=== PATIENT | male | born 1950 | race Caucasian/White ===

== ENCOUNTER 2019-03-10 09:00 | Inpatient (IN) | payer MEDICARE ==
--- NOTE | 2019-03-10 09:38 | ER Document Report ---
ED Medical Screen (RME) - General Chief Complaint: Foot Pain Stated Complaint: LEFT FOOT PAIN Time Seen by Provider: 03/10/19 09:20 TRAVEL OUTSIDE OF THE [place] IN LAST 30 DAYS: No - HPI Notes: 03/10/19 09:36 Patient is a 68-year-old male with a history of hypertension and CVA who presents complaining of having issues with his left foot for over a year, but having decreased sensation over this time. No fever. No injury that he is aware of. I have treated and performed a rapid initial assessment of this patient. A comprehensive ED assessment and evaluation of the patient, analysis of test results and completion of medical decision making process will be conducted by additional ED providers. PHYSICAL EXAMINATION: GENERAL: Patient appears cachectic, no acute distress. A&Ox4. Answers question s appropriately. Lower extremities: No palpable pulses noted nor with hand-held Doppler at bedside. Foot is otherwise warm with less than 3-second capillary refill. - Related Data Allergies/Adverse Reactions: No Known Allergies Allergy (Verified 03/14/15 16:46) Past Medical History - Social History Frequency of alcohol use: Heavy Drug Abuse: None - Past Medical History Cardiac Medical History: Reports: Hx Hypercholesterolemia, Hx Hypertension Neurological Medical History: Reports: Hx Cerebrovascular Accident GI Medical History: Reports: Hx Gastroesophageal Reflux Disease - Immunizations Hx Diphtheria, Pertussis, Tetanus Vaccination: Yes Physical Exam - Vital signs Vitals: Temp Pulse Resp BP Pulse Ox 97.9 F 86 18 122/62 93 03/10/19 09:22 03/10/19 09:22 03/10/19 09:22 03/10/19 09:22 03/10/19 09:22 Course - Vital Signs Vital signs: Temp Pulse Resp BP Pulse Ox 97.9 F 86 18 122/62 93 03/10/19 09:22 03/10/19 09:22 03/10/19 09:22 03/10/19 09:22 03/10/19 09:22
[2019-03-10 10:39] LABS: PROTHROMBIN TIME 13.2 SEC (11.4-15.4)
[2019-03-10 10:40] LABS: PARTIAL THROMBOPLASTIN TIME 33.9 SEC (23.5-35.8)
[2019-03-10 10:42] LABS: ALBUMIN 3.5 g/dL (3.5-5.0); ALKALINE PHOSPHATASE 144 U/L (38-126); ANION GAP 10 (5-19); ASPARTATE AMINO TRANSFERASE 22 U/L (17-59); BILIRUBIN,DIRECT 0.2 mg/dL (0.0-0.4); BILIRUBIN,TOTAL 0.5 mg/dL (0.2-1.3); BLOOD UREA NITROGEN 6 mg/dL (7-20); CALCIUM 8.4 mg/dL (8.4-10.2); CARBON DIOXIDE 32 mmol/L (22-30); CHLORIDE 77 mmol/L (98-107); GLUCOSE 80 mg/dL (75-110); TOTAL PROTEIN 6.6 g/dL (6.3-8.2)
[2019-03-10] MEDS ORDERED: PANTOPRAZOLE SODIUM 40 MG VIAL IV ONE ×2 (11:29→13:39)
[2019-03-10] MEDS ORDERED: NORMAL SALINE 250 ML IV PRN (11:29)
--- NOTE | 2019-03-10 11:38 | ER Document Report ---
ED General - General Chief Complaint: Foot Pain Stated Complaint: LEFT FOOT PAIN Time Seen by Provider: 03/10/19 09:20 TRAVEL OUTSIDE OF THE [place] IN LAST 30 DAYS: No - HPI Notes: Patient is a 68-year-old male who presents the emergency department for evaluation. He is here because he has left foot pain. He states is been present for about 6 months to a year. He states it is numb and tingling occasio storm, but it also hurts. He really cannot tell me what makes it better or worse. He denies any lavonne injury to the area. On further questioning, the patient states he has been feeling weak for several months. He denies any melena hematochezia. No chest pain or shortness of breath. He states he is been taking his medications as prescribed. He states he had blood work done last about 6 months ago. He also admits to being admitted to [facility] at one point with GI bleeding. He states he had a colonoscopy. He is unsure as to what his diagnosis was at that time. He denies any history of hematemesis. No history of varices to his knowledge. - Related Data Allergies/Adverse Reactions: No Known Allergies Allergy (Verified 03/14/15 16:46) Home Medications: Cardizem, baby aspirin, unknown acid reflux medication Past Medical History - General Information source: Patient - Social History Smoking Status: Current Every Day Smoker Frequency of alcohol use: Heavy Drug Abuse: None Family History: Reviewed & Not Pertinent, Other Patient has suicidal ideation: No Patient has homicidal ideation: No - Past Medical History Cardiac Medical History: Reports: Hx Hypercholesterolemia, Hx Hypertension Neurological Medical History: Reports: Hx Cerebrovascular Accident GI Medical History: Reports: Hx Gastroesophageal Reflux Disease - Immunizations Hx Diphtheria, Pertussis, Tetanus Vaccination: Yes Review of Systems - Review of Systems Constitutional: See HPI EENT: No symptoms reported Cardiovascular: No symptoms reported Respiratory: No symptoms reported Gastrointestinal: See HPI Genitourinary: No symptoms reported Skin: No symptoms reported Neurological/Psychological: No symptoms reported Physical Exam - Vital signs Vitals: Temp Pulse Resp BP Pulse Ox 97.9 F 86 18 122/62 93 03/10/19 09:22 03/10/19 09:22 03/10/19 09:22 03/10/19 09:22 03/10/19 09:22 - Notes Notes: This is a 68-year-old male who appears older than his stated age in no acute distress. Vital signs reviewed, please refer to chart. Head is normocephalic, atraumatic. Pupils equal round, reactive to light. Conjunctive are pale. Neck is supple without meningismus. Heart is regular rate and rhythm. Lungs reveal mildly diminished breath sounds with occasional expiratory wheezes. Abdomen is soft, nontender, normoactive bowel sounds throughout. Rectal exam is performed. Good tone, good sensation. Stool is brown and heme positive. Extremities without cyanosis, clubbing. Posterior calves are nontender. Peripheral pulses are equal. Skin is warm and dry. Patient is awake, alert, neurological exam is nonfocal. Examination of the left lower extremity yields markedly diminished posterior tibial pulse. I am unable to palpated dorsalis pedis pulse. Foot is warm to palpation, capillary refill is 3 to 5 seconds. Sensation is intact. No significant tenderness. Course - Re-evaluation Re-evalutation: 03/10/19 11:38 Patient presents emergency department for evaluation. This is a longstanding alcoholic who presents to the emergency department for evaluation of foot pain. On arrival he is very pale. Laboratory investigations were obtained. He was found to have a sodium of 118 and a hemoglobin of 5. He is given blood. He is given Protonix. He is kept n.p.o. Urine sodium is ordered. My suspicion is that this is a chronic hyponatremia based on his beer intake. Patient is currently stable, hypertensive with heart rate in the 90s. I will contact medicine for admission. 03/10/19 12:[address] Montero regarding this admission. Because of the severity of this patient's hyponatremia, he may qualify for the need for hypertonic saline. He will contact the certified ophthalmic surgical assistant. Awaiting response. 03/10/19 13:04 Because of his multiple medical issues and other findings, Dr. Andino came to the department. He will admit the patient to the ICU for further care. - Vital Signs Vital signs: Temp Pulse Resp BP Pulse Ox 97.9 F 85 17 178/79 H 98 03/10/19 12:46 03/10/19 12:46 03/10/19 13:00 03/10/19 13:00 03/10/19 13:00 - Laboratory Result Diagrams: 03/10/19 11:12 03/10/19 09:46 Laboratory results interpreted by me: 03/10/19 03/10/19 03/10/19 09:46 11:12 11:14 RBC 1.74 L Hgb 5.3 L Hct 15.8 L RDW 20.3 H Seg Neuts % (Manual) 91 H Band Neutrophils % 1 L Lymphocytes % (Manual) 1 L Abs Lymphs (Manual) 0.1 L Sodium 118.5 L* Chloride 77 L Carbon Dioxide 32 H BUN 6 L Creatinine 0.50 L Alkaline Phosphatase 144 H Urine Urobilinogen Crossmatch See Detail 03/10/19 11:36 RBC Hgb Hct RDW Seg Neuts % (Manual) Band Neutrophils % Lymphocytes % (Manual) Abs Lymphs (Manual) Sodium Chloride Carbon Dioxide BUN Creatinine Alkaline Phosphatase Urine Urobilinogen 2.0 H Crossmatch - Diagnostic Test Radiology reviewed: Pending - Verbal report reveals monophasic flow Discharge - Discharge Clinical Impression: Hyponatremia, Peripheral arterial disease Anemia Qualifiers: Iron deficiency anemia type: chronic blood loss GI bleed Qualifiers: GI bleed type/associated pathology: unspecified gastrointestinal hemorrhage type Qualified Code(s): K92.2 - Gastrointestinal hemorrhage, unspecified Condition: Stable Disposition: ADMITTED INPATIENT Admitting Provider: Tejal ([employer]) Unit Admitted: ICU
[2019-03-10 11:51] LABS: HEMATOCRIT 15.8 % (37.9-51.0); HEMOGLOBIN 5.3 g/dL (13.5-17.0); RED BLOOD COUNT 1.74 10^6/uL (4.35-5.55); WHITE BLOOD COUNT 6.4 10^3/uL (4.0-10.5)
[2019-03-10 11:52] LABS: MEAN CORPUSCULAR HEMOGLOBIN 30.2 pg (27.0-33.4); MEAN CORPUSCULAR HGB CONC 33.2 g/dL (32.0-36.0); MEAN CORPUSCULAR VOLUME 91 fl (80-97); PLATELET COUNT 281 10^3/uL (150-450); RED CELL DISTRIBUTION WIDTH 20.3 % (11.5-14.0)
[2019-03-10 11:57] LABS: ABSOLUTE LYMPHOCYTES# (MANUAL) 0.1 10^3/uL (0.5-4.7); ABSOLUTE MONOCYTES # (MANUAL) 0.4 10^3/uL (0.1-1.4); ANISOCYTOSIS 2+; BAND NEUTROPHILS % (MANUAL) 1 % (3-5); BASOPHILS % (MANUAL) 0 % (0-2); EOSINOPHILS % (MANUAL) 0 % (0-6); LYMPHOCYTES % (MANUAL) 1 % (13-45); MONOCYTES % (MANUAL) 7 % (3-13); POLYCHROMASIA SLIGHT; SCHISTOCYTES SLIGHT; SEGMENTED NEUTROPHILS % (MAN) 91 % (42-78); TEAR DROP CELLS SLIGHT; TOTAL CELLS COUNTED 100; TOXIC GRANULATION SLIGHT
[2019-03-10 11:58] LABS: BURR CELLS SLIGHT; HYPOCHROMASIA SLIGHT; PLATELET COMMENT ADEQUATE; POIKILOCYTOSIS SLIGHT
--- NOTE | 2019-03-10 12:06 | XCELERA REPORT ---
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 Reason For Study: L>R foot pain, no palp pulses, still warm Ordering Physician: PAWAN STEPHENS Performed By: Khushboo Roca Measurements and Calculations Right Left ART MUSEUM AIDE PSV -240.9 225.9 cm/sec Prox PFA PSV 448.0 -522.5cm/sec Prox SFA PSV 119.9 95.0 cm/sec Mid SFA PSV 98.5 26.7 cm/sec Dist SFA PSV 53.3 40.6 cm/sec Dist Pop A PSV 27.3 82.4 cm/sec Prox JOSUE PSV 56.7 22.7 cm/sec Dist JOSUE PSV 39.6 22.9 cm/sec Prox EXTRACTION MACHINE OPERATOR PSV 15.2 55.8 cm/sec Dist EXTRACTION MACHINE OPERATOR PSV 10.8 11.3 cm/sec Prox Topher A 56.3 35.1 cm/sec PSV Dist Topher A 55.8 15.0 cm/sec PSV Mario Alberto Pedis PSV 25.3 11.2 cm/sec Right Side Arterial Evaluation High velocity and triphasic waveforms, severe wall calcification and plaque on hayward scale noted in the Common Femoral and Deep Femoral arteries Normal velocity and triphasic waveforms noted from the Femoral artery to the Popliteal. Monophasic with low normal velocity in the Peroneal and Anterior tibial arteries. Monophasic with low velocity, spectral broadening in the Posterior tibial artery. Ankle Brachial index not done. Left Side Arterial Evaluation High velocity and biphasic waveforms, severe wall calcification and plaque on hayward scale noted in the Common Femoral and Deep Femoral arteries Low normal velocity and monophasic waveforms , spectral broadening noted from the Femoral artery to the infrageniculate arteries. Ankle Brachial index not done. Critical Findings Discussed with Pawan Stephens. Interpretation Summary Severe hemodynamically significant lesions in the bilateral lower extremities, on duplex imaging, at rest. Duplex imaging shows extensive arterial wall calcification, especially in the larger vessels. On the right there is high grade stenosis in the ART MUSEUM AIDE, DFA. Sequential disease in the infrageniculate vessels. On the left there is high grade stenosis in the ART MUSEUM AIDE, DFA. Sequential disease in the Femoral artery.. Both severe, but worse on the left. : PAWAN STEPHENS > Maximino Toney
[2019-03-10 12:15] LABS: APPEARANCE,URINE CLEAR; BILIRUBIN,URINE NEGATIVE (NEGATIVE); COLOR,URINE YELLOW; GLUCOSE, URINE NEGATIVE (NEGATIVE); KETONES,URINE NEGATIVE (NEGATIVE); LEUKOCYTE ESTERASE,URINE NEGATIVE (NEGATIVE); NITRITE,URINE NEGATIVE (NEGATIVE); PROTEIN,URINE NEGATIVE (NEGATIVE); URINE SPECIFIC GRAVITY 1.005
[2019-03-10] MEDS ORDERED: FENTANYL CITRATE INJ/PF 100 MCG/2 ML AMPUL IV ONE ×2 (13:53→19:18)
[2019-03-10 13:55] LABS: CREATINE KINASE 41 U/L (55-170); PHOSPHORUS 3.6 mg/dL (2.5-4.5)
[2019-03-10] MEDS ORDERED: FOLIC ACID INJ 5 MG/1 ML 10 ML VIAL IV SCH (14:00)
--- NOTE | 2019-03-10 14:05 | RADIOLOGY REPORT (SQ) ---
EXAM DESCRIPTION: CHEST SINGLE VIEW COMPLETED DATE/TIME: 03/10/2019 1:43 pm REASON FOR STUDY: smoker with anemia COMPARISON: AP view of the chest from 03/14/2015. EXAM PARAMETERS: NUMBER OF VIEWS: One view. TECHNIQUE: An AP view of the chest was obtained. RADIATION DOSE: NA LIMITATIONS: None. FINDINGS: LUNGS AND PLEURA: Patchy asymmetric opacities in the right base. There is no sizable pleu ral effusion or pneumothorax. MEDIASTINUM AND HILAR STRUCTURES: No mediastinal or hilar contour abnormality. HEART AND VASCULAR STRUCTURES: Stable cardiac silhouette. BONES: Chronic fracture deformities of several left-sided ribs. HARDWARE: None in the chest. OTHER: No other finding. IMPRESSION: Patchy asymmetric opacities in the right base. Correlate with clinical findings to excl ude a pneumonia. TECHNICAL DOCUMENTATION: JOB ID: [id number] All Rights Reserved Reading location - IP/workstation name: [email or web address]
[2019-03-10 14:19] LABS: ALCOHOL < 10 mg/dL (NONE DETECTED)
[2019-03-10 14:32] LABS: INTERNATIONAL RATION (INR) 1.02; PROTHROMBIN TIME 13.4 SEC (11.4-15.4)
[2019-03-10 14:33] LABS: PARTIAL THROMBOPLASTIN TIME 34.5 SEC (23.5-35.8)
[2019-03-10 14:44] LABS: ARTERIAL BLOOD BASE EXCESS 7.6 mmol/L; ARTERIAL BLOOD HCO3 33.1 mmol/L (20-24); ARTERIAL BLOOD O2 SATURATION 97.1 % (94-98); ARTERIAL BLOOD PCO2 53.3 mmHg (35-45); ARTERIAL BLOOD PH 7.41 (7.35-7.45); ARTERIAL BLOOD PO2 93.6 mmHg (80-100); ARTERIAL BLOOD TOTAL CO2 34.7 mmol/L (23-27)
[2019-03-10 14:45] LABS: ARTERIAL BLOOD FIO2 2LPM
[2019-03-10 14:51] LABS: URINE AMPHETAMINES SCREEN NEGATIVE; URINE BARBITURATES SCREEN NEGATIVE; URINE BENZODIAZEPINES SCREEN NEGATIVE; URINE COCAINE SCREEN NEGATIVE; URINE MARIJUANA (THC) SCREEN NEGATIVE; URINE METHADONE SCREEN NEGATIVE; URINE PHENCYCLIDINE SCREEN NEGATIVE
[2019-03-10 14:58] LABS: CARCINOEMBRYONIC ANTIGEN 4.4 ng/mL (<3.0)
[2019-03-10] MEDS: NORMAL SALINE 100 ML with PANTOPRAZOLE SODIUM 80 MG IV PRN ×2 (15:22)
[2019-03-10] MEDS: NORMAL SALINE 1000 ML 1,000 ML IV PRN (15:22)
[2019-03-10] MEDS: THIAMINE HCL 500 MG in NORMAL SALINE 250 ML IV SCH (15:38)
--- NOTE | 2019-03-10 16:32 | RADIOLOGY REPORT (SQ) ---
EXAM DESCRIPTION: CT CHEST WITH; CTA ABD AORTA AND EXTREMITY COMPLETED DATE/TIME: 03/10/2019 1:59 pm REASON FOR STUDY: hyponatremia terminal operator smoker; ischemic left leg hyponatremia terminal operator smoker; ischemic left leg left leg ischemia. COMPARISON: None. TECHNIQUE: CT scan of the chest, abdomen and pelvis and lower extremities performed with and without intravenous contrast using helical scanning technique with dynamic intravenous contrast injection. I mages reviewed with lung, soft tissue, and bone windows. Reconstructed coronal and sagittal MPR image s reviewed. All images stored on PACS. Advanced 3D imaging as volume-rendering, MIPs, SSD performed? NO All CT scanners at this facility use dose modulation, iterative reconstruction, and/or weight based d osing when appropriate to reduce radiation dose to as low as reasonably achievable (ALARA). [facility]: Dose Right [facility]: CareDose [facility]: Dose Right [facility]: Teradose 4D [facility]: HashCube CONTRAST TYPE AND DOSE: 100 mL Omnipaque 350 RENAL FUNCTION: Not given. LIMITATIONS: None. FINDINGS: NON-CONTRASTED IMAGING: There is extensive calcified atherosclerotic plaque involving the aorta, mesenteric vessels, bilateral lower extremities. POST-CONTRAST IMAGING: AORTA AND VESSELS: No aneurysm. No dissection. Coarse atherosclerotic calcification at the origins o f the renal arteries bilaterally, with probable greater than 50% stenosis on the left. Accessory rig ht renal artery is noted. There is coarse atherosclerotic calcification at the origin of the celiac artery. Replaced hepatic arteries from the superior mesenteric artery. There is moderate coarse ath erosclerotic plaque at the origin of the superior mesenteric artery. The inferior mesenteric artery is patent. There is coarse and circumferential atherosclerotic plaque the bifurcation of the common iliac arteries. There is greater than 50% stenosis at the proximal left common iliac artery. No ane urysm. Normal opacification of the bilateral external iliac arteries with scattered calcified and no ncalcified atherosclerotic plaque. No dissection. There is normal opacification of the right university internship al iliac artery. There is no detectable opacification of the left internal iliac artery. LUNGS: The trachea has normal caliber and appearance. Background moderate pulmonary emphysema. Tree -in-bud type nodularity in the right upper lobe suggestive of respiratory bronchiolitis/small airways disease. Focal atelectasis or possible nodule at the right lung base measures 2 cm. No pleural eff usion or pneumothorax. MEDIASTINUM: No mediastinal adenopathy. Esophagus is unremarkable. No thyroid nodules. AXILLA: No axillary adenopathy. BONES OF THE CHEST: Spondylosis and degenerative disc disease in the thoracic spine. Multiple chron ic bilateral posterior and lateral rib fractures. No definite acute fractures. LIVER: Normal size. No masses or dilated ducts. SPLEEN: Normal size. No focal lesions. PANCREAS: No masses. No significant calcifications. No adjacent inflammation or peripancreatic fluid collections. Pancreatic duct not dilated. GALLBLADDER: No identified stones by CT criteria. No inflammatory changes to suggest cholecystitis. ADRENAL GLANDS: No significant masses or asymmetry. RIGHT KIDNEY AND URETER: No mass, calculi or urinary tract obstruction. LEFT KIDNEY AND URETER: No mass, calculi or urinary tract obstruction. RETROPERITONEUM: No retroperitoneal adenopathy, hemorrhage or masses. BOWEL AND PERITONEAL CAVITY: Colonic diverticulosis without evidence of diverticulitis. There is no bowel obstruction. No bowel wall thickening or inflammatory change. APPENDIX: Normal. ABDOMINAL WALL: No masses. No hernias. BONY STRUCTURES: There are technically age indeterminate, probably chronic, moderate compression frac tures at T12 and L1 and a severe probably chronic L3 compression fracture. No lytic or blastic bone lesions. 3-D IMAGING: Confirms the above findings. OTHER: No other significant finding. LOWER EXTREMITIES: RIGHT LEG: FEMORAL ARTERIES: The right common femoral artery is patent. Calcified and noncalcified atherosclero tic plaque at the bifurcation of the profunda and superficial femoral arteries. Both femoral arterie s are opacified with contrast. There is calcified and noncalcified atherosclerotic plaque in the sup erficial femoral artery at the adductor hiatus with probable 50% stenosis at this level. POPLITEAL ARTERY: Focal stenosis at the proximal right popliteal artery probably 70%. Calcified and noncalcified atherosclerotic plaque in the popliteal artery. There is a coarse calcification of the distal popliteal artery with high-grade stenosis just prior to the trifurcation. TIBIOPERONEAL TRUNK AND RUNOFF VESSELS: Extensive calcified atherosclerotic plaque in the vessels bel ow the knee. There does appear to be 3 vessel runoff below the knee to the level of the ankle. Eval uation of the foot is limited. OTHER: No other significant finding. LEFT LEG: FEMORAL ARTERIES: The left common femoral artery is patent with calcified and noncalcified atheroscle rotic plaque. At the bifurcation of the left profunda femoral and superficial femoral artery, there is extensive calcified and noncalcified atherosclerotic plaque with near complete occlusion of the etienne perficial femoral artery and probable complete focal occlusion of the profunda femoral artery. There is reconstitution of vascular flow within profunda femoral artery from collateral vessels. The supe rficial femoral artery demonstrates small caliber with calcified and noncalcified atherosclerotic jon que. There is opacification throughout to the level of the popliteal artery. POPLITEAL ARTERY: Course atherosclerotic calcification in the popliteal artery with significant steno sis in the proximal and mid popliteal artery. TIBIOPERONEAL TRUNK AND RUNOFF VESSELS: There is three-vessel runoff at the trifurcation with occlusi on at the mid calf of the peroneal artery two-vessel runoff from the mid calf, with opacification of the anterior and posterior tibial arteries. Evaluation of the vasculature at the foot is limited. OTHER: No other significant finding. IMPRESSION: 1. Extensive atherosclerosis in the abdominal aorta and lower extremities as described. Of note, the re is probably greater than 50% stenosis in the left common femoral artery just prior to the internal and external bifurcation, complete occlusion of the left internal iliac and profunda femoral arterie s. Extensive atherosclerotic plaque with stenoses as described in the bilateral lower extremities. Recommend surgical/interventional consultation. 2. Tree-in-bud type nodularity in the right upper lobe suggestive of respiratory bronchiolitis/small airways disease. 3. Rounded atelectasis or possible nodule at the right lung base. A follow-up CT of the chest in 3 [facility] is recommended to re-evaluate these findings. 4. Multiple technically age indeterminate but probably chronic thoracic and lumbar spine compression fractures. Chronic bilateral rib fractures. TECHNICAL DOCUMENTATION: JOB ID: [id number] Quality ID # [id number]: Final reports with documentation of one or more dose reduction techniques (e.g., Au tomated exposure control, adjustment of the mA and/or kV according to patient size, use of iterative reconstruction technique) 2010 [employer]- All Rights Reserved Reading location - IP/workstation name: [email or web address]
--- NOTE | 2019-03-10 16:32 | RADIOLOGY REPORT (SQ) ---
EXAM DESCRIPTION: CT CHEST WITH; CTA ABD AORTA AND EXTREMITY COMPLETED DATE/TIME: 03/10/2019 1:59 pm REASON FOR STUDY: hyponatremia intermediate manager smoker; ischemic left leg hyponatremia intermediate manager smoker; ischemic left leg left leg ischemia. COMPARISON: None. TECHNIQUE: CT scan of the chest, abdomen and pelvis and lower extremities performed with and without intravenous contrast using helical scanning technique with dynamic intravenous contrast injection. I mages reviewed with lung, soft tissue, and bone windows. Reconstructed coronal and sagittal MPR image s reviewed. All images stored on PACS. Advanced 3D imaging as volume-rendering, MIPs, SSD performed? NO All CT scanners at this facility use dose modulation, iterative reconstruction, and/or weight based d osing when appropriate to reduce radiation dose to as low as reasonably achievable (ALARA). [facility]: Dose Right [facility]: CareDose [facility]: Dose Right [facility]: Teradose 4D [facility]: ChowNow CONTRAST TYPE AND DOSE: 100 mL Omnipaque 350 RENAL FUNCTION: Not given. LIMITATIONS: None. FINDINGS: NON-CONTRASTED IMAGING: There is extensive calcified atherosclerotic plaque involving the aorta, mesenteric vessels, bilateral lower extremities. POST-CONTRAST IMAGING: AORTA AND VESSELS: No aneurysm. No dissection. Coarse atherosclerotic calcification at the origins o f the renal arteries bilaterally, with probable greater than 50% stenosis on the left. Accessory rig ht renal artery is noted. There is coarse atherosclerotic calcification at the origin of the celiac artery. Replaced hepatic arteries from the superior mesenteric artery. There is moderate coarse ath erosclerotic plaque at the origin of the superior mesenteric artery. The inferior mesenteric artery is patent. There is coarse and circumferential atherosclerotic plaque the bifurcation of the common iliac arteries. There is greater than 50% stenosis at the proximal left common iliac artery. No ane urysm. Normal opacification of the bilateral external iliac arteries with scattered calcified and no ncalcified atherosclerotic plaque. No dissection. There is normal opacification of the right industrial engineering intern al iliac artery. There is no detectable opacification of the left internal iliac artery. LUNGS: The trachea has normal caliber and appearance. Background moderate pulmonary emphysema. Tree -in-bud type nodularity in the right upper lobe suggestive of respiratory bronchiolitis/small airways disease. Focal atelectasis or possible nodule at the right lung base measures 2 cm. No pleural eff usion or pneumothorax. MEDIASTINUM: No mediastinal adenopathy. Esophagus is unremarkable. No thyroid nodules. AXILLA: No axillary adenopathy. BONES OF THE CHEST: Spondylosis and degenerative disc disease in the thoracic spine. Multiple chron ic bilateral posterior and lateral rib fractures. No definite acute fractures. LIVER: Normal size. No masses or dilated ducts. SPLEEN: Normal size. No focal lesions. PANCREAS: No masses. No significant calcifications. No adjacent inflammation or peripancreatic fluid collections. Pancreatic duct not dilated. GALLBLADDER: No identified stones by CT criteria. No inflammatory changes to suggest cholecystitis. ADRENAL GLANDS: No significant masses or asymmetry. RIGHT KIDNEY AND URETER: No mass, calculi or urinary tract obstruction. LEFT KIDNEY AND URETER: No mass, calculi or urinary tract obstruction. RETROPERITONEUM: No retroperitoneal adenopathy, hemorrhage or masses. BOWEL AND PERITONEAL CAVITY: Colonic diverticulosis without evidence of diverticulitis. There is no bowel obstruction. No bowel wall thickening or inflammatory change. APPENDIX: Normal. ABDOMINAL WALL: No masses. No hernias. BONY STRUCTURES: There are technically age indeterminate, probably chronic, moderate compression frac tures at T12 and L1 and a severe probably chronic L3 compression fracture. No lytic or blastic bone lesions. 3-D IMAGING: Confirms the above findings. OTHER: No other significant finding. LOWER EXTREMITIES: RIGHT LEG: FEMORAL ARTERIES: The right common femoral artery is patent. Calcified and noncalcified atherosclero tic plaque at the bifurcation of the profunda and superficial femoral arteries. Both femoral arterie s are opacified with contrast. There is calcified and noncalcified atherosclerotic plaque in the sup erficial femoral artery at the adductor hiatus with probable 50% stenosis at this level. POPLITEAL ARTERY: Focal stenosis at the proximal right popliteal artery probably 70%. Calcified and noncalcified atherosclerotic plaque in the popliteal artery. There is a coarse calcification of the distal popliteal artery with high-grade stenosis just prior to the trifurcation. TIBIOPERONEAL TRUNK AND RUNOFF VESSELS: Extensive calcified atherosclerotic plaque in the vessels bel ow the knee. There does appear to be 3 vessel runoff below the knee to the level of the ankle. Eval uation of the foot is limited. OTHER: No other significant finding. LEFT LEG: FEMORAL ARTERIES: The left common femoral artery is patent with calcified and noncalcified atheroscle rotic plaque. At the bifurcation of the left profunda femoral and superficial femoral artery, there is extensive calcified and noncalcified atherosclerotic plaque with near complete occlusion of the etienne perficial femoral artery and probable complete focal occlusion of the profunda femoral artery. There is reconstitution of vascular flow within profunda femoral artery from collateral vessels. The supe rficial femoral artery demonstrates small caliber with calcified and noncalcified atherosclerotic jon que. There is opacification throughout to the level of the popliteal artery. POPLITEAL ARTERY: Course atherosclerotic calcification in the popliteal artery with significant steno sis in the proximal and mid popliteal artery. TIBIOPERONEAL TRUNK AND RUNOFF VESSELS: There is three-vessel runoff at the trifurcation with occlusi on at the mid calf of the peroneal artery two-vessel runoff from the mid calf, with opacification of the anterior and posterior tibial arteries. Evaluation of the vasculature at the foot is limited. OTHER: No other significant finding. IMPRESSION: 1. Extensive atherosclerosis in the abdominal aorta and lower extremities as described. Of note, the re is probably greater than 50% stenosis in the left common femoral artery just prior to the internal and external bifurcation, complete occlusion of the left internal iliac and profunda femoral arterie s. Extensive atherosclerotic plaque with stenoses as described in the bilateral lower extremities. Recommend surgical/interventional consultation. 2. Tree-in-bud type nodularity in the right upper lobe suggestive of respiratory bronchiolitis/small airways disease. 3. Rounded atelectasis or possible nodule at the right lung base. A follow-up CT of the chest in 3 [facility] is recommended to re-evaluate these findings. 4. Multiple technically age indeterminate but probably chronic thoracic and lumbar spine compression fractures. Chronic bilateral rib fractures. TECHNICAL DOCUMENTATION: JOB ID: [id number] Quality ID # [id number]: Final reports with documentation of one or more dose reduction techniques (e.g., Au tomated exposure control, adjustment of the mA and/or kV according to patient size, use of iterative reconstruction technique) 2010 [employer]- All Rights Reserved Reading location - IP/workstation name: [email or web address]
--- NOTE | 2019-03-10 17:32 | CRITICAL CARE ADMISSION REPORT ---
HPI Date:: 03/10/19 Time:: 13:40 Reason for ICU Reason:: Hyponatremia and Anemia HPI: Zachery Sharma is a 68-year-old man who presented to the emergency department for evaluation. He called EMS himself because of pain in his left foot. The on going work-up he was ultimately found to be severely anemic and hyponatremic but asymptomatic in both respects. We were called by the hospitalist service to evaluate for official consult to determine whether he needed ICU management and care. He relates that pain has been present for 6 months or more. When asked why he presented today he states that he became tired of it. He paresthesia and anesthesia intermittently but has frequent pain. Unsure of claudication endorsement. He imbibes at least a 12 pack of beer per day and has been smoking 1-1/2 to 2 Packs of cigarettes daily. Denies trauma. Has been malaised and feels weaker for some time. No chest pain, no shortness of breath. He does not complain of any hemoptysis, hematemesis, hematochezia, or melena. There is some suggestion that he had a GI bleed at [facility]. He also states that his family doctor is a Dr. Pinto however after multiple attempts I am unable to find Dr. Pinto associated with this patient. He says his last appointment was a month ago. Despite that although he has listed medications he is unsure of the names and does not endorse that he takes Plavix even though that it is listed. The only doctor listed with 1 of his medications is that Dr. Ronnie Garcia who is an ED doc. He states he is been taking his medications as prescribed. He states he had blood work done last about 6 months ago. He appears to have had a colonoscopy at some point. No history of varices to his knowledge. He was ordered 2 units of blood. He was not hemodynamically unstable. Notably his sodium was 118. Patient is extremely emaciated and he states he has been losing significant weight. He had duplex ultrasound of his extremity showing poor flow History obtained from:: Patient and ED staff - Diagnosis/Plan (1) Hyponatremia Is this a current diagnosis for this admission?: Yes (2) Anemia Qualifiers: Anemia type: iron deficiency Iron deficiency anemia type: chronic blood loss Qualified Code(s): D50.0 - Iron deficiency anemia secondary to blood loss (chronic) Is this a current diagnosis for this admission?: Yes (3) Weight loss, abnormal Is this a current diagnosis for this admission?: Yes (4) Moderate protein-calorie malnutrition Is this a current diagnosis for this admission?: Yes (5) ETOH abuse Is this a current diagnosis for this admission?: Yes (6) EtOH dependence Qualifiers: Substance use status: unspecified alcohol-induced disorder Qualified Code(s): F10.29 - Alcohol dependence with unspecified alcohol-induced disorder Is this a current diagnosis for this admission?: Yes (7) Continuous tobacco abuse Is this a current diagnosis for this admission?: Yes (8) Peripheral vascular complications Is this a current diagnosis for this admission?: Yes (9) Hypertension Qualifiers: Hypertension type: essential hypertension Qualified Code(s): I10 - Essential (primary) hypertension Is this a current diagnosis for this admission?: Yes (10) Failure to thrive syndrome, adult Is this a current diagnosis for this admission?: Yes - . Plan Summary: Patient has symptomatic for vascular disease and I am concerned about the left foot pain. This may be exacerbated because of the anemia which appears to be an indolent insidious loss perceptively most likely GI bleed. He is extremely emaciated hyponatremic and has a long and outstanding alcohol history as well as tobacco abuse. 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 The last known sodium was 2016 and the number was 136. Today is 118 is associated with any acute neurological dysfunction. His last drink of alcohol was last evening. His foot pain is worse and I ordered a CT angiogram with extremity runoff. If this is significant he would need to be transferred to a higher level of care given our lack of vascular surgery services. For now I suspect his hyponatremia is longstanding and chronic and he will not need aggressive care such as 3% saline unless he has neurological changes. That being said given his lack of alcohol for 24 hours he is at risk for alcohol withdrawal seizures and a lower sodium may place him at a higher risk for a low threshold for seizures. For that reason he needs to be monitored in an ICU. His foot pain is significant and we have given him fentanyl. He is hypertensive now because of pain and for baseline hypertension. He certainly does not show any degree of hypotension suggesting that his anemia has been longstanding and chronic. Our hope is to improve his leg pain with a transfusion of at least [address] of chest to rule out malignancy as well. Awaiting urine studies to determine the type of hyponatremia has as well as serum osmolarity's. Given his alcohol use I have added high-dose thiamine and folate. We will place him under seizure precautions. He will be maintained in the emergency room until the CT is completed. CT angiogram of abdomen with extremity runoff extensive disease. Specifically there is thrombosis of the internal iliac and profundus with collateral to the profundus. His pain has been significant requiring fentanyl. Examination of the foot shows hyperemia and pain with movement or palpation. There is no evidence to support cellulitis. The atherosclerotic changes are significant to warrant vascular consult. I had the opportunity to speak with Dr. Yee advised him to review the images and the case with me. He does have chronic disease with collateral flow and the anemia has probably made the ischemia slightly worse. With blood products that he is received his foot is hyperemic and his pain is improved with both the fentanyl and the blood products. At this point he recommends continued transfusion and obviously termination of source. 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 He has a questionable nodule on the lung on the right which will need follow-up. Admit the patient to the ICU and follow his course Past Medical History Cardiac Medical History: Reports: Hyperlipidema, Hypertension Malignancy Medical History: Reports: None GI Medical History: Reports: Gastroesophageal Reflux Disease, Other - Questionable GI bleed in past Psychiatric Medical History: Reports: Alcohol Dependency, Tobacco Dependency Social/Family History - Social History Lives with: Alone Smoking Status: Current Every Day Smoker Frequency of Alcohol Use: Heavy Amount of Alcoholic Beverages Per Day: 12 pack Last Alcohol Use: 03/09/19 Hx Recreational Drug Use: No Drugs: None - Family History Family History: Reviewed & Not Pertinent - Medication/Allergies Home Medications: Clopidogrel Bisulfate [Plavix 75 mg Tablet] 75 mg PO DAILY 08/19/13 Diltiazem HCl [Diltiazem ER] 360 mg PO DAILY 08/19/13 Famotidine [Pepcid 20 mg Tablet] 20 mg PO BID 08/19/13 Ferrous Sulfate [Albafort] 325 mg PO DAILY 08/19/13 Metronidazole [Metrogel] 60 gm TP ASDIR 08/19/13 Pravastatin Sodium [Pravachol] 40 mg PO QHS 08/19/13 Diltiazem HCl [Diltiazem ER] 360 mg PO DAILY #14 capsule.er 03/15/15 Allergies/Adverse Reactions: No Known Allergies Allergy (Verified 03/14/15 16:46) Review of Systems Constitutional: PRESENT: fatigue, weakness, weight loss. ABSENT: headache(s) Cardiovascular: ABSENT: chest pain, dyspnea on exertion Respiratory: ABSENT: cough, dyspnea, hemoptysis Gastrointestinal: ABSENT: abdominal pain, coffee ground emesis, constipation, diarrhea, hematemesis, hematochezia, nausea, vomiting Genitourinary: ABSENT: difficulty urinating, hematuria Musculoskeletal: PRESENT: other - Left foot pain Neurological: PRESENT: numbness, paresthesias, weakness - left leg Hematologic/Lymphatic: ABSENT: easy bleeding, easy bruising Physical Exam Vital Signs: Temp Pulse Resp BP Pulse Ox 97.7 F 81 11 L 186/86 H 100 03/10/19 13:03 03/10/19 13:03 03/10/19 13:30 03/10/19 13:30 03/10/19 13:30 Intake & Output 03/09/19 03/10/19 03/11/19 06:59 06:59 06:59 Intake Total 0 Balance 0 Weight 46.4 kg Weight/Height Weight 46.4 kg Height 5 ft 6 in General appearance: PRESENT: no acute distress, cooperative, disheveled, thin Exam: Thin, emaciated 68-year-old white male in occasional moderate distress from left foot pain. He is awake and aware oriented to person time and place. He appears chronically ill, nontoxic but ill-appearing now Head exam: PRESENT: atraumatic, normocephalic Eye exam: PRESENT: conjunctiva pink, EOMI, PERRLA. ABSENT: nystagmus, scleral icterus Ear exam: PRESENT: normal external ear exam Mouth exam: PRESENT: dry mucosa, neck supple Teeth exam: PRESENT: edentulous Neck exam: ABSENT: carotid bruit, JVD, lymphadenopathy, thyromegaly, tracheal deviation Respiratory exam: PRESENT: clear to auscultation ran, unlabored. ABSENT: accessory muscle use, rales, rhonchi, tachypnea, wheezes Cardiovascular exam: PRESENT: RRR. ABSENT: diastolic murmur, rubs, systolic murmur Pulses: PRESENT: other - No palpable left DP pulse. Increased MOTOCROSS RACER (Capillary refill time) > 3 seconds. ABSENT: normal dorsalis pedis pul GI/Abdominal exam: PRESENT: normal bowel sounds, soft, other - Significant we ight loss with scaphoid abdomen. ABSENT: distended, guarding, mass, organolmegaly, rebound, tenderness Rectal exam: PRESENT: heme (+) stool Extremities exam: ABSENT: pedal edema, tenderness Musculoskeletal exam: ABSENT: deformity, dislocation, normal inspection - atrophy of left leg Neurological exam: PRESENT: alert, awake, oriented to person, oriented to place, oriented to time, oriented to situation, CN II-XII grossly intact. ABSENT: motor sensory deficit Psychiatric exam: PRESENT: appropriate affect, normal mood Focused psych exam: ABSENT: pressured speech, psychomotor agitation, restlessness Skin exam: PRESENT: intact, pallor - left foot, slight. ABSENT: abrasion, cyanosis, erythema Laboratory/Radiographs Laboratory Results: 03/10/19 11:12 03/10/19 09:46 03/10/19 03/10/19 03/10/19 09:46 09:46 11:12 WBC Cancelled 6.4 RBC Cancelled 1.74 L Hgb Cancelled 5.3 L Hct Cancelled 15.8 L MCV Cancelled 91 MCH Cancelled 30.2 MCHC Cancelled 33.2 RDW Cancelled 20.3 H Plt Count Cancelled 281 Seg Neutrophils % Cancelled Not Reportable Sodium 118.5 L* Potassium 4.0 Chloride 77 L Carbon Dioxide 32 H Anion Gap 10 BUN 6 L Creatinine 0.50 L Est GFR ( Amer) > 60 Glucose 80 Calcium 8.4 Total Bilirubin 0.5 AST 22 Alkaline Phosphatase 144 H Total Protein 6.6 Albumin 3.5 Urine Color Urine Appearance Urine pH Ur Specific [place] Urine Protein Urine Glucose (UA) Urine Ketones Urine Blood Urine Nitrite Ur Leukocyte Esterase Urine WBC (Auto) Blood Type Antibody Screen 03/10/19 03/10/19 11:14 11:36 WBC RBC Hgb Hct MCV MCH MCHC RDW Plt Count Seg Neutrophils % Sodium Potassium Chloride Carbon Dioxide Anion Gap BUN Creatinine Est GFR ( Amer) Glucose Calcium Total Bilirubin AST Alkaline Phosphatase Total Protein Albumin Urine Color YELLOW Urine Appearance CLEAR Urine pH 7.0 Ur Specific [place] 1.005 Urine Protein NEGATIVE Urine Glucose (UA) NEGATIVE Urine Ketones NEGATIVE Urine Blood NEGATIVE Urine Nitrite NEGATIVE Ur Leukocyte Esterase NEGATIVE Urine WBC (Auto) 0 Blood Type O POSITIVE Antibody Screen NEGATIVE Chest X-Ray 03/10/19 13:06 IMPRESSION: Patchy asymmetric opacities in the right base. Correlate with clinical findings to exclude a pneumonia. US reviewed Impressions: Severe arterial disease bilaterally but worse on left All labs, radiographs, diagnostic studies and EKGs were personally reviewed: Yes In addition, reports of radiographic and diagnostic studies were read: Yes Critical Time Critical Time (minutes): 120 -: The care of a critically ill patient is dynamic. This note represents a static moment in the admission process. Orders and treatments may be given simultaneously and urgently, and time is not desk representative of the treatment process. This patient requires Critical Care secondary to life threatening organ or limb dysfunction. Without Critical Care services, the patient is at risk for increa sed mortality and morbidity.
[2019-03-10 18:45] LABS: MEAN CORPUSCULAR HEMOGLOBIN 28.7 pg (27.0-33.4); MEAN CORPUSCULAR HGB CONC 33.8 g/dL (32.0-36.0); PLATELET COUNT 229 10^3/uL (150-450); RED BLOOD COUNT 2.71 10^6/uL (4.35-5.55); RED CELL DISTRIBUTION WIDTH 19.9 % (11.5-14.0); WHITE BLOOD COUNT 6.9 10^3/uL (4.0-10.5)
[2019-03-10 18:50] LABS: HEMOGLOBIN 7.8 g/dL (13.5-17.0); MEAN CORPUSCULAR VOLUME 85 fl (80-97)
[2019-03-10 19:08] LABS: ABSOLUTE LYMPHOCYTES# (MANUAL) 0.2 10^3/uL (0.5-4.7); ABSOLUTE MONOCYTES # (MANUAL) 0.6 10^3/uL (0.1-1.4); ANISOCYTOSIS 2+; BAND NEUTROPHILS % (MANUAL) 3 % (3-5); BASOPHILS % (MANUAL) 0 % (0-2); EOSINOPHILS % (MANUAL) 1 % (0-6); HYPOCHROMASIA 2+; LYMPHOCYTES % (MANUAL) 3 % (13-45); MONOCYTES % (MANUAL) 8 % (3-13); SEGMENTED NEUTROPHILS % (MAN) 85 % (42-78); TOTAL CELLS COUNTED 100
[2019-03-10 19:09] LABS: PLATELET COMMENT ADEQUATE
[2019-03-10] MEDS ORDERED: FENTANYL CITRATE INJ/PF 100 MCG/2 ML AMPUL IV PRN (20:08)
[2019-03-10] MEDS ORDERED: NALOXONE HCL INJ/PF 0.4 MG/1 ML SDV IV PRN (20:09)
[2019-03-10 20:37] LABS: ANION GAP 11 (5-19); BLOOD UREA NITROGEN 5 mg/dL (7-20); CALCIUM 8.3 mg/dL (8.4-10.2); CARBON DIOXIDE 27 mmol/L (22-30); CHLORIDE 85 mmol/L (98-107); GLUCOSE 86 mg/dL (75-110); POTASSIUM 3.6 mmol/L (3.6-5.0)
--- NOTE | 2019-03-10 20:55 | EKG REPORT ---
SEVERITY:- ABNORMAL ECG - SINUS RHYTHM CONSIDER LEFT VENTRICULAR HYPERTROPHY ANTERIOR Q WAVES, POSSIBLY DUE TO LVH : Confirmed by: Rosendo Chawla 10-Mar-2019 20:54:28
[2019-03-10] MEDS ORDERED: INFLUENZA QUAD (6MOS+) 2019-20 VAC 0.5 ML SYR IM ONE (20:56)
[2019-03-11] MEDS ORDERED: LABETALOL HCL INJ 20 MG/4 ML DISP.SYRIN IV ONE ×2 (00:07→02:30)
[2019-03-11] MEDS: NORMAL SALINE 1000 ML 1,000 ML IV PRN (00:33)
[2019-03-11] MEDS: NORMAL SALINE 100 ML with PANTOPRAZOLE SODIUM 80 MG IV PRN ×6 (00:49→20:38)
[2019-03-11 02:30] LABS: ANION GAP 9 (5-19); BLOOD UREA NITROGEN 6 mg/dL (7-20); CALCIUM 7.8 mg/dL (8.4-10.2); CARBON DIOXIDE 28 mmol/L (22-30); CHLORIDE 88 mmol/L (98-107); GLUCOSE 80 mg/dL (75-110); POTASSIUM 3.5 mmol/L (3.6-5.0)
[2019-03-11] MEDS: MORPHINE SULFATE 10 MG/ML INJ IV PRN ×2 (02:54→06:19)
[2019-03-11 06:08] LABS: HEMATOCRIT 23.8 % (37.9-51.0); HEMOGLOBIN 8.2 g/dL (13.5-17.0); MEAN CORPUSCULAR HGB CONC 34.3 g/dL (32.0-36.0); MEAN CORPUSCULAR VOLUME 85 fl (80-97); PLATELET COUNT 216 10^3/uL (150-450); RED BLOOD COUNT 2.82 10^6/uL (4.35-5.55); RED CELL DISTRIBUTION WIDTH 21.2 % (11.5-14.0); WHITE BLOOD COUNT 6.8 10^3/uL (4.0-10.5)
[2019-03-11 06:28] LABS: ANION GAP 6 (5-19); BLOOD UREA NITROGEN 4 mg/dL (7-20); CARBON DIOXIDE 30 mmol/L (22-30); CHLORIDE 90 mmol/L (98-107); GLUCOSE 83 mg/dL (75-110); PHOSPHORUS 4.1 mg/dL (2.5-4.5); POTASSIUM 3.5 mmol/L (3.6-5.0)
[2019-03-11 06:37] LABS: ABSOLUTE LYMPHOCYTES# (MANUAL) 0.6 10^3/uL (0.5-4.7); ABSOLUTE MONOCYTES # (MANUAL) 0.7 10^3/uL (0.1-1.4); BAND NEUTROPHILS % (MANUAL) 1 % (3-5); BASOPHILS % (MANUAL) 0 % (0-2); EOSINOPHILS % (MANUAL) 0 % (0-6); LYMPHOCYTES % (MANUAL) 9 % (13-45); MONOCYTES % (MANUAL) 11 % (3-13); SEGMENTED NEUTROPHILS % (MAN) 79 % (42-78); TOTAL CELLS COUNTED 100
[2019-03-11 06:38] LABS: ANISOCYTOSIS 3+; PLATELET COMMENT ADEQUATE; POLYCHROMASIA SLIGHT; SCHISTOCYTES SLIGHT; TOXIC GRANULATION SLIGHT
[2019-03-11] MEDS: THIAMINE HCL 500 MG in NORMAL SALINE 250 ML IV SCH (09:09)
[2019-03-11 10:23] LABS: ANION GAP 8 (5-19); BLOOD UREA NITROGEN 4 mg/dL (7-20); CARBON DIOXIDE 29 mmol/L (22-30); CHLORIDE 90 mmol/L (98-107); GLUCOSE 78 mg/dL (75-110); POTASSIUM 3.4 mmol/L (3.6-5.0)
[2019-03-11] MEDS: FOLIC ACID 1 MG in NORMAL SALINE 50 ML IV SCH (11:13)
[2019-03-11] MEDS ORDERED: FENTANYL CITRATE INJ/PF 100 MCG/2 ML AMPUL ONE ×2 (13:12→22:17)
[2019-03-11] MEDS ORDERED: NALOXONE HCL INJ/PF 0.4 MG/1 ML SDV ONE (13:12)
[2019-03-11] MEDS ORDERED: MIDAZOLAM 2 MG/2 ML INJ ONE (13:12)
[2019-03-11] MEDS ORDERED: DIPHENHYDRAMINE HCL 50 MG/ML VIAL ONE (13:12)
[2019-03-11] MEDS ORDERED: ONDANSETRON HCL INJ/PF 4 MG/2 ML SDV ONE (13:12)
[2019-03-11] MEDS ORDERED: EPINEPHRINE INJ 1 MG/10 ML DISP.SYRIN ONE (13:13)
[2019-03-11] MEDS ORDERED: FLUMAZENIL INJ 0.5 MG/5 ML VIAL ONE (13:13)
[2019-03-11] MEDS ORDERED: GLUCAGON,HUMAN RECOMB 1 MG INJ ONE (13:13)
--- NOTE | 2019-03-11 13:56 | Operative Report ---
Nonrecallable Operative Report DATE OF SURGERY: 03/11/19 PREOPERATIVE DIAGNOSIS: anemia POSTOPERATIVE DIAGNOSIS: anemia OPERATION: esophagogastroduodenosocpy SURGEON: ROMEO WHITESIDE ANESTHESIA: Moderate Sedation TISSUE REMOVED OR ALTERED: gastric biopsy COMPLICATIONS: none ESTIMATED BLOOD LOSS: 0 INTRAOPERATIVE FINDINGS: see note PROCEDURE: This is a 68-year-old male presented with severe anemia admitted to the ICU and at the request of the brake mechanic a upper endoscopy was performed to rule out gastric or duodenal bleeding or other pathology. The patient was seen in his hospital bed in the intensive care unit after appropriate timeout site verification the procedure commenced. Patient was given 2 mg of IV Versed for sedation. His throat was sprayed with Hurricaine spray. The Olympus gastroscope was easily passed into the posterior pharynx traversed the upper esophageal sphincters into the proximal esophagus through the lower esophageal sphincter into the body the stomach. We then traversed the body the stomach past the antrum identify the duodenal bulb and passed the scope to the second portion of the duodenum. As we slowly withdrew the scope we examined the duodenum and the duodenal bulb. The duodenal bulb had a small point 5 cm healing ulcer at the medial aspect. Scope was then slowly withdrawn back through the pylorus the antrum was visualized and appeared to be normal the body the stomach is also appeared to be normal the scope was then retroflexed and we noted a moderate sized hiatal hernia and on the cardia of the stomach there was a small gastric ulcer that was nonbleeding and also appeared to be healing and this was biopsied. The scope was then slowly withdrawn the esophagus was examined there were no varices and no evidence of Urbano's esophagitis and the scope was then slowly withdrawn. Findings #1. Small duodenal bulb ulcer 2. Small gastric ulcer at the cardia of the stomach biopsied 3. Moderate sized hiatal hernia.
[2019-03-11 14:13] LABS: ANION GAP 7 (5-19); BLOOD UREA NITROGEN 3 mg/dL (7-20); CALCIUM 8.1 mg/dL (8.4-10.2); CARBON DIOXIDE 31 mmol/L (22-30); CHLORIDE 89 mmol/L (98-107); GLUCOSE 75 mg/dL (75-110); POTASSIUM 3.7 mmol/L (3.6-5.0)
[2019-03-11 18:44] LABS: ANION GAP 7 (5-19); BLOOD UREA NITROGEN 4 mg/dL (7-20); CALCIUM 8.1 mg/dL (8.4-10.2); CARBON DIOXIDE 31 mmol/L (22-30); CHLORIDE 89 mmol/L (98-107); GLUCOSE 76 mg/dL (75-110); HEMATOCRIT 24.1 % (37.9-51.0); HEMOGLOBIN 8.2 g/dL (13.5-17.0); MEAN CORPUSCULAR HEMOGLOBIN 28.9 pg (27.0-33.4); MEAN CORPUSCULAR HGB CONC 33.9 g/dL (32.0-36.0); MEAN CORPUSCULAR VOLUME 85 fl (80-97); PLATELET COUNT 228 10^3/uL (150-450); POTASSIUM 3.5 mmol/L (3.6-5.0); RED BLOOD COUNT 2.83 10^6/uL (4.35-5.55); RED CELL DISTRIBUTION WIDTH 21.7 % (11.5-14.0); WHITE BLOOD COUNT 8.9 10^3/uL (4.0-10.5)
[2019-03-11 19:19] LABS: ABSOLUTE LYMPHOCYTES# (MANUAL) 0.1 10^3/uL (0.5-4.7); ABSOLUTE MONOCYTES # (MANUAL) 0.4 10^3/uL (0.1-1.4); BAND NEUTROPHILS % (MANUAL) 1 % (3-5); BASOPHILS % (MANUAL) 0 % (0-2); EOSINOPHILS % (MANUAL) 0 % (0-6); LYMPHOCYTES % (MANUAL) 1 % (13-45); MONOCYTES % (MANUAL) 5 % (3-13); SEGMENTED NEUTROPHILS % (MAN) 93 % (42-78); TOTAL CELLS COUNTED 100
[2019-03-11 19:20] LABS: ANISOCYTOSIS 3+; PLATELET COMMENT ADEQUATE
--- NOTE | 2019-03-11 20:04 | PDOC CRITICAL CARE PROG REPORT ---
General Date:: 03/11/19 ICU Day:: 2 Hospital Day:: 2 Resuscitation Status: Full Code Medical Power of Business Line Controller: Non-official: Gary: Obdulia Caps: [phone] Events in the past 12 to 24 Hours:: 03.11.2019: Patient had pain controlled with fentanyl. This is been an ongoing problem which prompted him to come to the ICU. Noted in yesterday's admission note patient has significant arterial disease but did not require any urgent surgical intervention. There are Doppler signals in the foot and the foot is now more hyperemic after being given blood products. Review of systems relevant to events:: 03.11.2019: Patient's sodium has risen in a correct fashion and his sodium IV fluid has been discontinued. He underwent EGD today which showed a small ulceration in the fundus that was biopsied. There was not active bleeding but may have been the source of chronic bleeding. His hemoglobin hematocrit have remained stable and have risen in expected fashion given 2 units of blood. He has not required any further blood products. We evaluated the proximal bowel to the second portion of the duodenum and did not see any active ulceration or bleeding except possibly at the duodenal bulb. He has had no neurological deficits. He has been sedated from narcotics and from the procedure and the medical power of securities attorney meeting today could not be accomplished secondary to his inability to be fully cognizant. He did meet with his proposed medical power of securities attorney, Obdulia, who is been his landlady and friend for a number of years. She is currently caring for her elderly and would be willing to consider medical power of securities attorney as long as there is no family. Reason for ICU Addmission:: Hyponatremia and Anemia - Medications: Medications reviewed and adjusted accordingly: Yes Vasopressors:: None Sedation:: Fentanyl prn Physical Exam Vital Signs: Temp Pulse Resp BP Pulse Ox 99.5 F 91 13 125/65 97 03/11/19 18:00 03/11/19 18:00 03/11/19 18:34 03/11/19 18:34 03/11/19 18:34 Intake & Output 03/10/19 03/11/19 03/12/19 06:59 06:59 06:59 Intake Total 1868 987 Output Total 980 275 Balance 888 712 Weight 48.2 kg 48.2 kg Weight/Height Weight 48.2 kg Height 5 ft 5 in General appearance: PRESENT: disheveled, thin Exam: Lethargic but arousable disheveled and chronically ill-appearing 68-year-old male no active distress. Head exam: PRESENT: atraumatic, normocephalic Eye exam: PRESENT: EOMI, PERRLA. ABSENT: conjunctival injection, conjunctiva pale, nystagmus, scleral icterus Mouth exam: PRESENT: moist, neck supple Teeth exam: PRESENT: edentulous, poor dentation Neck exam: ABSENT: carotid bruit, JVD, lymphadenopathy, thyromegaly Respiratory exam: PRESENT: rhonchi, unlabored. ABSENT: accessory muscle use, rales, tachypnea, wheezes Cardiovascular exam: PRESENT: RRR. ABSENT: diastolic murmur, rubs, systolic murmur, tachycardia Pulses: PRESENT: other - Doppler signal right>Left. ABSENT: normal dorsalis pedis pul, +1 pedal pulses bilateral, +2 pedal pulses bilateral GI/Abdominal exam: PRESENT: normal bowel sounds, soft. ABSENT: ascites, diste nded, guarding, mass, organolmegaly, rebound, tenderness Rectal exam: PRESENT: deferred Gentrourinary exam: PRESENT: other - Circumsized male. ABSENT: ecchymosis, scrotal swelling, indwelling catheter Extremities exam: PRESENT: tenderness - left foot but improved. ABSENT: calf tenderness, clubbing Musculoskeletal exam: PRESENT: tenderness, other - Hyperemia to left foot. Old ulcerations which were present on admission. Muscle atrophy Left>right. ABSENT: deformity, dislocation Neurological exam: PRESENT: awake, oriented to person, oriented to place, CN II- XII grossly intact. ABSENT: oriented to time, oriented to situation, motor sensory deficit Psychiatric exam: PRESENT: flat affect Focused psych exam: ABSENT: pressured speech, psychomotor agitation, restlessness Skin exam: ABSENT: erythema - hyperemia left foot, intact - See above. Old ulceration to tips of digits 2-4 on left foot. Tubes/Lines: ABSENT: Endotracheal Tube, Chest Tube, Central Line, Arterial Catheter, Dialysis catheter, Peg Tube, Nasogastic Tube, Other Laboratory/Radiographs Laboratory Results: 03/11/19 18:15 03/11/19 18:15 01/10/20 01/11/20 01/11/20 20:05 02:01 05:50 WBC 6.8 RBC 2.82 L Hgb 8.2 L Hct 23.8 L MCV 85 MCH 29.0 MCHC 34.3 RDW 21.2 H Plt Count 216 Seg Neutrophils % Not Reportable Sodium 122.6 L 124.6 L Potassium 3.6 3.5 L Chloride 85 L 88 L Carbon Dioxide 27 28 Anion Gap 11 9 BUN 5 L 6 L Creatinine 0.44 L 0.45 L Est GFR ( Amer) > 60 > 60 Glucose 86 80 Calcium 8.3 L 7.8 L Phosphorus Magnesium 03/11/19 03/11/19 03/11/19 05:50 09:54 13:35 WBC RBC Hgb Hct MCV MCH MCHC RDW Plt Count Seg Neutrophils % Sodium 125.9 L 127.3 L 127.2 L Potassium 3.5 L 3.4 L 3.7 Chloride 90 L 90 L 89 L Carbon Dioxide 30 29 31 H Anion Gap 6 8 7 BUN 4 L 4 L 3 L Creatinine 0.48 L 0.51 L 0.47 L Est GFR ( Amer) > 60 > 60 > 60 Glucose 83 78 75 Calcium 8.0 L 8.0 L 8.1 L Phosphorus 4.1 Magnesium 1.7 03/11/19 03/11/19 18:15 18:15 WBC 8.9 RBC 2.83 L Hgb 8.2 L Hct 24.1 L MCV 85 MCH 28.9 MCHC 33.9 RDW 21.7 H Plt Count 228 Seg Neutrophils % Not Reportable Sodium 126.8 L Potassium 3.5 L Chloride 89 L Carbon Dioxide 31 H Anion Gap 7 BUN 4 L Creatinine 0.47 L Est GFR ( Amer) > 60 Glucose 76 Calcium 8.1 L Phosphorus Magnesium 03/10/19 09:46 Creatine Kinase 41 L Impressions: Aorta w/Runoff CTA 03/10/19 00:00 IMPRESSION: 1. Extensive atherosclerosis in the abdominal aorta and lower extremities as described. Of note, there is probably greater than 50% stenosis in the left common femoral artery just prior to the internal and external bifurcation, complete occlusion of the left internal iliac and profunda femoral arteries. Extensive atherosclerotic plaque with stenoses as described in the bilateral lower extremities. Recommend surgical/interventional consultation. 2. Tree-in-bud type nodularity in the right upper lobe suggestive of respiratory bronchiolitis/small airways disease. 3. Rounded atelectasis or possible nodule at the right lung base. A follow-up CT of the chest in 3 months is recommended to re-evaluate these findings. 4. Multiple technically age indeterminate but probably chronic thoracic and lumbar spine compression fractures. Chronic bilateral rib fractures. Chest CT 03/10/19 00:00 IMPRESSION: 1. Extensive atherosclerosis in the abdominal aorta and lower extremities as described. Of note, there is probably greater than 50% stenosis in the left common femoral artery just prior to the internal and external bifurcation, complete occlusion of the left internal iliac and profunda femoral arteries. Extensive atherosclerotic plaque with stenoses as described in the bilateral l ower extremities. Recommend surgical/interventional consultation. 2. Tree-in-bud type nodularity in the right upper lobe suggestive of respiratory bronchiolitis/small airways disease. 3. Rounded atelectasis or possible nodule at the right lung base. A follow-up CT of the chest in 3 months is recommended to re-evaluate these findings. 4. Multiple technically age indeterminate but probably chronic thoracic and lumbar spine compression fractures. Chronic bilateral rib fractures. Chest X-Ray 03/10/19 13:06 IMPRESSION: Patchy asymmetric opacities in the right base. Correlate with clinical findings to exclude a pneumonia. 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 (2) Anemia Qualifiers: Anemia type: iron deficiency Iron deficiency anemia type: chronic blood loss Qualified Code(s): D50.0 - Iron deficiency anemia secondary to blood loss (chronic) Is this a current diagnosis for this admission?: Yes (3) Gastric ulcer without hemorrhage or perforation Qualifiers: Gastric ulcer chronicity: chronic Qualified Code(s): K25.7 - Chronic gastric ulcer without hemorrhage or perforation Is this a current diagnosis for this admission?: Yes Plan: No acute bleeding but shows some evidence of chronic bleeding (4) Weight loss, abnormal Is this a current diagnosis for this admission?: Yes (5) Moderate protein-calorie malnutrition Is this a current diagnosis for this admission?: Yes (6) ETOH abuse Is this a current diagnosis for this admission?: Yes (7) EtOH dependence Qualifiers: Substance use status: unspecified alcohol-induced disorder Qualified Code(s): F10.29 - Alcohol dependence with unspecified alcohol-induced disorder Is this a current diagnosis for this admission?: Yes (8) Continuous tobacco abuse Is this a current diagnosis for this admission?: Yes (9) Peripheral vascular complications Is this a current diagnosis for this admission?: Yes (10) Hypertension Qualifiers: Hypertension type: essential hypertension Qualified Code(s): I10 - Essential (primary) hypertension Is this a current diagnosis for this admission?: Yes (11) Failure to thrive syndrome, adult Is this a current diagnosis for this admission?: Yes Plan Summary: 03.11.2019: Patient's overall clinical status has improved and he is remained hemodynamically stable. His low hemoglobin and hematocrit are reflective of a compensatory chronic condition. His foot pain has been made worse by the introduction of blood which is improved perfusion. This appears to be hyperemic reperfusion syndrome treatment is etienne pportive including pain control. I placed his bed in reverse Trendelenburg to continue to support blood flow however if this worsens the pain will need to adjust accordingly. He did have a small area of ulceration in both the stomach and possibly of the duodenal bulb. We are not sure that this explains the degree of his anemia and he will need an a colonoscopy. There is a suggestion that his had a colonoscopy in the past but we are unable to confirm this. We will obtain old records from where we assume he had procedures done ([facility]) Patient's hyponatremia is improved and will discontinue his IV fluids. We will start him on a full liquid diet. Patient has significant alcohol intake that he describes is more than 12 pack of beer per day. Not exhibiting any signs of withdrawal but will be prudent to watch and manage this while in the ICU. Given the possibility of a lesion in his right lung he will need follow-up. Given the urine sodium elevation and hyponatremia of the suggest SIADH and the most common reason would be for malignancy and a long-term smoker. Given his significant vascular disease we have not started nicotine patch. We we will have to discuss tobacco cessation however the use of fentanyl may cloud his memory of discussions. Will await until he is more lucid. Critical Time Critical Time (minutes): 42 Level of Care: ICU -: 1. The care of a critical patient is a dynamic process. This note is a wholesale representative synopsis but static in nature. The timeframe for treatments given in order is not necessarily the actual time these treatments may have been done. 2. This patient requires critical care secondary to ongoing requirements for therapy not offered or safe outside the critical care environment. Transfer to a lower level of care will result in altered life or limb morbidity and mortality. 3. Multidisciplinary rounds completed. 4. ABCDE bundle addressed.
[2019-03-11] MEDS ORDERED: FENTANYL CITRATE INJ/PF 100 MCG/2 ML AMPUL IV ONE ×2 (21:00→22:30)
[2019-03-11 22:15] LABS: ANION GAP 9 (5-19); BLOOD UREA NITROGEN 5 mg/dL (7-20); CALCIUM 8.2 mg/dL (8.4-10.2); CARBON DIOXIDE 29 mmol/L (22-30); CHLORIDE 89 mmol/L (98-107); GLUCOSE 72 mg/dL (75-110); POTASSIUM 3.5 mmol/L (3.6-5.0)
[2019-03-12 01:21] LABS: ABSOLUTE LYMPHOCYTES (AUTO) 0.8 10^3/uL (0.5-4.7); ABSOLUTE MONOCYTES (AUTO) 0.9 10^3/uL (0.1-1.4); ABSOLUTE NEUT (AUTO) 6.3 10^3/uL (1.7-8.2); BASOPHILS % (AUTO) 0.3 % (0-2); EOSINOPHILS % (AUTO) 0.2 % (0-6); HEMATOCRIT 23.9 % (37.9-51.0); HEMOGLOBIN 8.1 g/dL (13.5-17.0); LYMPHOCYTES % (AUTO) 9.5 % (13-45); MEAN CORPUSCULAR HEMOGLOBIN 29.2 pg (27.0-33.4); MEAN CORPUSCULAR HGB CONC 33.8 g/dL (32.0-36.0); MEAN CORPUSCULAR VOLUME 86 fl (80-97); MONOCYTES % (AUTO) 11.4 % (3-13); PLATELET COUNT 217 10^3/uL (150-450); RED BLOOD COUNT 2.77 10^6/uL (4.35-5.55); RED CELL DISTRIBUTION WIDTH 21.7 % (11.5-14.0); SEGMENTED NEUTROPHILS % (AUTO) 78.6 % (42-78); TOTAL CELLS COUNTED % (AUTO) 100 %
[2019-03-12] MEDS ORDERED: FENTANYL CITRATE INJ/PF 100 MCG/2 ML AMPUL ONE (02:15)
[2019-03-12] MEDS ORDERED: FENTANYL CITRATE INJ/PF 100 MCG/2 ML AMPUL IV ONE (03:00)
[2019-03-12] MEDS: POTASSI CL 20 MEQ/50 ML RIDER 20 MEQ/50 ML RTUPB IV SCH ×2 (03:41→05:43)
[2019-03-12] MEDS: MAGNESIUM SULFATE/D5W 1 GM/100 ML RTUPB IV SCH ×2 (03:41→05:45)
[2019-03-12] MEDS: NORMAL SALINE 100 ML with PANTOPRAZOLE SODIUM 80 MG IV PRN ×2 (06:56)
[2019-03-12 08:14] LABS: ANION GAP 7 (5-19); BLOOD UREA NITROGEN 7 mg/dL (7-20); C-REACTIVE PROTEIN 86.8 mg/L (<10.0); CALCIUM 7.9 mg/dL (8.4-10.2); CARBON DIOXIDE 31 mmol/L (22-30); CHLORIDE 91 mmol/L (98-107); CREATINE KINASE 29 U/L (55-170); GLUCOSE 76 mg/dL (75-110); PHOSPHORUS 3.7 mg/dL (2.5-4.5); POTASSIUM 4.1 mmol/L (3.6-5.0)
[2019-03-12] MEDS ORDERED: NORMAL SALINE 1000 ML 1,000 ML IV PRN (08:56)
--- NOTE | 2019-03-12 09:16 | PDOC TRANSFER SUMMARY ---
General Admission Date/PCP: 03/10/19 13:23 Resuscitation Status: Full Code - Transfer Diagnosis (1) Hyponatremia Is this a current diagnosis for this admission?: Yes (2) Anemia Is this a current diagnosis for this admission?: Yes (3) Gastric ulcer without hemorrhage or perforation Is this a current diagnosis for this admission?: Yes (4) Weight loss, abnormal Is this a current diagnosis for this admission?: Yes (5) Moderate protein-calorie malnutrition Is this a current diagnosis for this admission?: Yes (6) ETOH abuse Is this a current diagnosis for this admission?: Yes (7) EtOH dependence Is this a current diagnosis for this admission?: Yes (8) Continuous tobacco abuse Is this a current diagnosis for this admission?: Yes (9) Peripheral vascular complications Is this a current diagnosis for this admission?: Yes (10) T wave inversion in electrocardiogram Is this a current diagnosis for this admission?: Yes (11) Hypertension Is this a current diagnosis for this admission?: Yes (12) Failure to thrive syndrome, adult Is this a current diagnosis for this admission?: Yes - Transfer Medications Home Medications: Clopidogrel Bisulfate [Plavix 75 mg Tablet] 75 mg PO DAILY 08/19/13 Diltiazem HCl [Diltiazem ER] 360 mg PO DAILY 08/19/13 Famotidine [Pepcid 20 mg Tablet] 20 mg PO BID 08/19/13 Ferrous Sulfate [Albafort] 325 mg PO DAILY 08/19/13 Metronidazole [Metrogel] 60 gm TP ASDIR 08/19/13 Pravastatin Sodium [Pravachol] 40 mg PO QHS 08/19/13 Transfer Medications: Current Medications Pantoprazole Sodium 80 mg/ (Sodium Chloride) 100 mls @ 10 mls/hr IV CONTINUOUS PRN PRN Reason: THIS MED IS NOT "PRN" Stop: 03/17/19 13:09 Last Admin: 03/12/19 06:56 Dose: 10 ml/h, 10 mls/hr Documented by: Thiamine HCl 500 mg/ Sodium (Chloride) 255 mls @ 510 mls/hr IV DAILY [facility] Stop: 04/09/19 15:29 Last Admin: 03/11/19 09:09 Dose: 510 ml/hr, 510 mls/hr Documented by: Folic Acid 1 mg/ Sodium (Chloride) 50.2 mls @ 100.4 mls/hr IV DAILY [facility] Stop: 04/10/19 09:59 Last Admin: 03/11/19 11:13 Dose: 100.4 ml/hr, 100.4 mls/hr Documented by: Sodium Chloride (Nacl 0.9% 1000 Ml Iv Soln) 1,000 mls @ 50 mls/hr IV CONTINUOUS PRN PRN Reason: THIS MED IS NOT "PRN" Stop: 04/11/19 08:55 Thiamine HCl 250 mg/ Sodium (Chloride) 52.5 mls @ 102 mls/hr IV Q12 [facility] Stop: 04/11/19 09:59 Naloxone HCl (Narcan Inj/Pf 0.4 Mg/1 Ml Sdv) 0.4 mg IV PRN PRN PRN Reason: FOR OVERDOSE SYMPTOMS Stop: 04/09/19 20:08 Pantoprazole Sodium (Protonix Iv Inj 40 Mg Vial) 40 mg IV Q12 [facility] Stop: 03/15/19 09:59 Sodium Chloride (Saline Flush 2.5 Ml Monoject Prefil Syrin) 2.5 ml IV Q8 [facility] Stop: 04/09/19 13:59 Last Admin: 03/12/19 05:46 Dose: Not Given Documented by: - Allergies Allergies/Adverse Reactions: No Known Allergies Allergy (Verified 03/14/15 16:46) - Diet/Activity Discharge Diet: Other (Comments) - NPO for now Discharge Activity: Energy Conservation, Other - Keep legs down, dependent Hospital Course Hospital Course: 68-year-old white male for which the critical care service was consulted on because of hyponatremia and severe anemia without hemodynamic compromise. HPI from admission: Zachery Sharma is a 68-year-old man who presented to the emergency department for evaluation. He called EMS himself because of pain in his left foot. The on going work-up he was ultimately found to be severely anemic and hyponatremic but asymptomatic in both respects. We were called by the hospitalist service to evaluate for official consult to determine whether he needed ICU management and care. He relates that pain has been present for 6 months or more. When asked why he presented today he states that he became tired of it. He paresthesia and anesthesia intermittently but has frequent pain. Unsure of claudication endorsement. He imbibes at least a 12 pack of beer per day and has been smoking 1-1/2 to 2 Packs of cigarettes daily. Denies trauma. Has been malaised and feels weaker for some time. No chest pain, no shortness of breath. He does not complain of any hemoptysis, hematemesis, hematochezia, or melena. There is some suggestion that he had a GI bleed at [facility]. He also states that his family doctor is a Dr. Pinto however after multiple attempts I am unable to find Dr. Pinto associated with this patient. He says his last appointment was a month ago. Despite that although he has listed medications he is unsure of the names and does not endorse that he takes Plavix even though that it is listed. The only doctor listed with 1 of his medications is that Dr. Ronnie Garcia who is an ED doc. He states he is been taking his medications as prescribed. He states he had blood work done last about 6 months ago. He appears to have had a colonoscopy at some point. No history of varices to his knowledge. He was ordered 2 units of blood. He was not hemodynamically unstable. Notably his sodium was 118. Patient is extremely emaciated and he states he has been losing significant weight. He had duplex ultrasound of his extremity showing poor flow He underwent CT angiogram with vascular runoff to the lower extremity showing extensive severe disease with thrombotic segments and tertiary (detour (blood flow. He did not have any ischemic skin changes but the leg and foot would change color depending on position. Patient was carried out with the vascular surgeons who felt that this was chron ic and possibly exacerbated by the anemia. He was given 2 units of blood with an appropriate rise and sustained response in hemoglobin. Did cause increased hyperemia in the foot and patient experienced pain with this suggestive of reperfusion hyperemic pain. He underwent EGD 03/11/2019 which showed a small ulceration in the gastric fundus without active bleeding. There was also questionable duodenal bulb ulceration without active bleeding. There was mild gastritis. The findings were suggestiv e of but not on formational for the reason for his blood loss. Also presented with a sodium of 118 which appeared to be chronic as well. There were no neurological deficits at the time. With conservative judicious management of his saline (0.9), he did not require hypertonic saline and his sodium level laura appropriately to 128 today. He had a less than 8 mEq rise in 24 hours. There were no neurological deficits throughout his hospital stay. As noted above patient has significant alcohol use. He has not had any tremor, seizure, or neurological changes. Today, 03/12/2019 patient's left foot pain was noted to be slightly worse. He needed to be maintained in a very dependent position (reverse Trendelenburg at 45 degrees). He would also tend to bend his left leg which exacerbated the p ain. He was placed on an immobilizer but kept in a reverse formation so as to not compromise the popliteal artery which is noted to be compromised on CT scan. In addition to this he had T wave changes on his EKG not associated with chest pain. There was only mild elevation of his troponin 2.1 and this decreased to 0.079 and subsequent blood draws. The changes were associated with pain in his leg at that time and this is suggestive of underlying occult coronary disease with probable fractional flow phenomena. Chronologic notes: 03.12.2019: Patient's pain has become worse. It is position dependent and placing him in a reverse Trendelenburg position helps with color and flow in the posterior tibialis. He is now lost flow, on Doppler signal, and the dorsalis pedis which was previously there. In addition his sodium level has improved and he is currently being considered and placed on downgrade for the floor. He has not had any chest pain however there were EKG changes seen on the monitor prompting a formal EKG. There were lateral T wave changes and on one segment (aVF), ST depression. He has not been more short of breath troponin was 0.1 now 0.79. CK, done to rule out ischemia of both the leg and heart was unremarkable and certainly not elevated. As noted in my note yesterday we met with Obdulia Schneider who is his landlord and in whom the patient has listed as his medical power of document review attorney. We were unable to obtain formal paperwork because the patient had received sedative medications for his EGD. Plans are underway to assure that there was no family. 03.11.2019: Patient had pain controlled with fentanyl. This is been an ongoing problem which prompted him to come to the ICU. Noted in yesterday's admission note patient has significant arterial disease but did not require any urgent surgical intervention. There are Doppler signals in the foot and the foot is now more hyperemic after being given blood products. Review of systems relevant to events:: 1.12.2020: Patient endorses pain with movement changes. He is asking for pain medications to control this pain. 03.11.2019: Patient's sodium has risen in a correct fashion and his sodium IV fluid has been discontinued. He underwent EGD today which showed a small ulceration in the fundus that was biopsied. There was not active bleeding but may have been the source of chronic bleeding. His hemoglobin hematocrit have remained stable and have risen in expected fashion given 2 units of blood. He has not required any further blood products. We evaluated the proximal bowel to the second portion of the duodenum and did not see any active ulceration or bleeding except possibly at the duodenal bulb. He has had no neurological deficits. He has been sedated from narcotics and from the procedure and the medical power of document review attorney meeting today could not be accomplished secondary to his inability to be fully cognizant. He did meet with his proposed medical power of document review attorney, Obdulia, who is been his landlady and friend for a number of years. She is currently caring for her elderly and would be willing to consider medical power of document review attorney as long as there is no family. Chronology: plans 03.12.2019: Patient's condition as far as vascular compromise has worsened. He i s more position dependent as far as fractional flow and we have lost the Doppler signal in the left dorsalis pedis. We have placed him in reverse Trendelenburg to achieve blood flow as evidenced by the decrease in capillary response time and improvement in color. Also placed the patient in a modified immobilizer to remind him to keep his leg straight. Any bending of the leg causes compromise in blood flow. As far as chest pain, he is asymptomatic however he has T wave inversions. This may be during pain crises which is indicative of a possible fractional flow reserve phenomena of the heart as well. His sodium level has improved and he is hovering in 127-128. He had an appropriate response and opiate rise over the last 48 hours. His hemoglobin has remained stable above 8. Notably, we do not sense that increasing to a level any higher would improve his overall situation and may cause complications. His blood pressure is improved but is on the high side. We had considered calcium channel chantal to both aid in blood pressure and help leg pain however I am most concerned that this may create a paradoxical steal- like syndrome both intracardiac and peripheral vascularly. I placed a call to [facility] to speak to the vascular surgeon who we had already spoken with on the patient's admission day. Given the fact that he has intact motor or sensory and no skin changes this does not appear to be an emergent degeneration which would require immediate surgical intervention. I am con cerned that the patient has minimal reserve as far as flow with any movement or activity and he is at high risk. He has been transitioned to intermediate care however I do feel with the T wave changes and his very tenuous vascular compromise that he will need to be seen by a vascular team sooner than later. He is having ischemic rest pain in the leg without compromise of the neuro motor system however this is at the cost of keeping him in reverse Trendelenburg and limiting movement. Have asked to speak to their hospitalist and ordered an attempt to have a multi- modal services evaluate the patient for which we do not have here at [place]. 03.11.2019: Patient's overall clinical status has improved and he is remained hemodynamically stable. His low hemoglobin and hematocrit are reflective of a compensatory chronic condition. His foot pain has been made worse by the introduction of blood which is improved perfusion. 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 I placed his bed in reverse Trendelenburg to continue to support blood flow however if this worsens the pain will need to adjust accordingly. He did have a small area of ulceration in both the stomach and possibly of the duodenal bulb. We are not sure that this explains the degree of his anemia and he will need an a colonoscopy. There is a suggestion that his had a colonoscopy in the past but we are unable to confirm this. We will obtain old records from where we assume he had procedures done ([facility]) Patient's hyponatremia is improved and will discontinue his IV fluids. We will start him on a full liquid diet. Patient has significant alcohol intake that he describes is more than 12 pack of beer per day. Not exhibiting any signs of withdrawal but will be prudent to watch and manage this while in the ICU. Given the possibility of a lesion in his right lung he will need follow-up. Given the urine sodium elevation and hyponatremia of the suggest SIADH and the most common reason would be for malignancy and a long-term smoker. Given his significant vascular disease we have not started nicotine patch. We we will have to discuss tobacco cessation however the use of fentanyl may cloud his memory of discussions. Will await until he is more lucid. Physical Exam Vital Signs: Temp Pulse Resp BP Pulse Ox 98.3 F 85 15 135/69 H 91 L 03/12/19 08:00 03/12/19 08:00 03/12/19 08:00 03/12/19 08:00 03/12/19 08:59 Intake & Output 03/11/19 03/12/19 03/13/19 06:59 06:59 06:59 Intake Total 1868 1430 Output Total 980 625 0 Balance 888 805 0 Weight 48.2 kg 45.5 kg Exam: See today's progress note Results Laboratory Results: 03/12/19 00:59 03/12/19 07:14 03/11/19 03/11/19 03/11/19 09:54 13:35 18:15 WBC RBC Hgb Hct MCV MCH MCHC RDW Plt Count Seg Neutrophils % Sodium 127.3 L 127.2 L 126.8 L Potassium 3.4 L 3.7 3.5 L Chloride 90 L 89 L 89 L Carbon Dioxide 29 31 H 31 H Anion Gap 8 7 7 BUN 4 L 3 L 4 L Creatinine 0.51 L 0.47 L 0.47 L Est GFR ( Amer) > 60 > 60 > 60 Glucose 78 75 76 Calcium 8.0 L 8.1 L 8.1 L Phosphorus Magnesium C-Reactive Protein 03/11/19 03/11/19 03/12/19 18:15 21:43 00:59 WBC 8.9 8.0 RBC 2.83 L 2.77 L Hgb 8.2 L 8.1 L Hct 24.1 L 23.9 L MCV 85 86 MCH 28.9 29.2 MCHC 33.9 33.8 RDW 21.7 H 21.7 H Plt Count 228 217 Seg Neutrophils % Not Reportable 78.6 H Sodium 127.1 L Potassium 3.5 L Chloride 89 L Carbon Dioxide 29 Anion Gap 9 BUN 5 L Creatinine 0.46 L Est GFR ( Amer) > 60 Glucose 72 L Calcium 8.2 L Phosphorus Magnesium C-Reactive Protein 03/12/19 03/12/19 00:59 07:14 WBC RBC Hgb Hct MCV MCH MCHC RDW Plt Count Seg Neutrophils % Sodium 128.9 L Potassium 4.1 Chloride 91 L Carbon Dioxide 31 H Anion Gap 7 BUN 7 Creatinine 0.47 L Est GFR ( Amer) > 60 Glucose 76 Calcium 7.9 L Phosphorus 4.0 3.7 Magnesium 1.8 2.5 H C-Reactive Protein 86.8 H 03/10/19 03/12/19 03/12/19 09:46 00:59 00:59 Creatine Kinase 41 L 32 L CK-MB (CK-2) Troponin I 0.104 03/12/19 03/12/19 03/12/19 07:14 07:14 07:14 Creatine Kinase 29 L CK-MB (CK-2) 1.33 Troponin I 0.079 Impressions: Aorta w/Runoff CTA 03/10/19 00:00 IMPRESSION: 1. Extensive atherosclerosis in the abdominal aorta and lower extremities as described. Of note, there is probably greater than 50% stenosis in the left common femoral artery just prior to the internal and external bifurcation, complete occlusion of the left internal iliac and profunda femoral arteries. Extensive atherosclerotic plaque with stenoses as described in the bilateral lower extremities. Recommend surgical/interventional consultation. 2. Tree-in-bud type nodularity in the right upper lobe suggestive of respiratory bronchiolitis/small airways disease. 3. Rounded atelectasis or possible nodule at the right lung base. A follow-up CT of the chest in 3 months is recommended to re-evaluate these findings. 4. Multiple technically age indeterminate but probably chronic thoracic and lumbar spine compression fractures. Chronic bilateral rib fractures. Chest CT 03/10/19 00:00 IMPRESSION: 1. Extensive atherosclerosis in the abdominal aorta and lower extremities as described. Of note, there is probably greater than 50% stenosis in the left common femoral artery just prior to the internal and external bifurcation, complete occlusion of the left internal iliac and profunda femoral arteries. Extensive atherosclerotic plaque with stenoses as described in the bilateral lower extremities. Recommend surgical/interventional consultation. 2. Tree-in-bud type nodularity in the right upper lobe suggestive of respiratory bronchiolitis/small airways disease. 3. Rounded atelectasis or possible nodule at the right lung base. A follow-up CT of the chest in 3 months is recommended to re-evaluate these findings. 4. Multiple technically age indeterminate but probably chronic thoracic and lumbar spine compression fractures. Chronic bilateral rib fractures. Chest X-Ray 03/10/19 13:06 IMPRESSION: Patchy asymmetric opacities in the right base. Correlate with clinical findings to exclude a pneumonia. Status: Image reviewed by me Plan Discharge Plan: Patient has been downgraded to IMCU status but is under consideration for transfer to [facility]. The reason for transfer is that the patient appears to have significant vascular issues and given his concurrent use of alcohol, tobacco and minimal ability to maintain blood flow to foot I am concerned that given any increase metabolic profile, his situation will worsen. In addition he now has T wave changes that are not associated with chest pain or any hemodynamic instability. Given these multi-vascular issues and the lack of vascular resources at this hospital I felt that it was in this patient's best interest to access a tertiary care center who will be able to manage the above. We would be happy to accept the patient back in transfer once the vascular issues are settled or ameliorated. He has been accepted to the hospitalist service and the cardiovascular care team and we will continue to maintain vigilant evaluation and management until the transfer. 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 I am concerned that he has an underlying malignancy. The stomach ulcer was biopsied but it did not appear to have an egregious appearance to suggest malignancy. His colon, will need to be evaluated as well however that we will need to wait until further work-up of his vascular issues. He is currently on normal saline at 50 cc an hour. We have made him n.p.o. pending any further evaluations. He was to have a colonoscopy when stable. He has had no active melena or hematochezia. His stool was guaiac positive. Time Spent: Greater than 30 Minutes
[2019-03-12] MEDS: FOLIC ACID 1 MG in NORMAL SALINE 50 ML IV SCH (09:38)
[2019-03-12] MEDS ORDERED: HYDROMORPHONE HCL INJ/PF 2 MG/ML AMPULE IV PRN (09:51)
[2019-03-12] MEDS ORDERED: PANTOPRAZOLE SODIUM 40 MG VIAL IV SCH (10:00)
--- NOTE | 2019-03-12 10:01 | PDOC CRITICAL CARE PROG REPORT ---
General Date:: 03/12/19 ICU Day:: 3 Hospital Day:: 3 Resuscitation Status: Full Code Medical Power of [employer]: Non-official: Land: Obdulia Ashley: [phone] Events in the past 12 to 24 Hours:: 03.12.2019: Patient's pain has become worse. It is position dependent and placing him in a reverse Trendelenburg position helps with color and flow in the posterior tibialis. He is now lost flow, on Doppler signal, and the dorsalis pedis which was previously there. In addition his sodium level has improved and he is currently being considered and placed on downgrade for the floor. He has not had any chest pain however there were EKG changes seen on the monitor prompting a formal EKG. There were lateral T wave changes and on one segment (aVF), ST depression. He has not been more short of breath troponin was 0.1 now 0.79. CK, done to rule out ischemia of both the leg and heart was unremarkable and certainly not elevated. As noted in my note yesterday we met with Obdulia Schneider who is his landlord and in whom the patient has listed as his medical power of battery assembler plastic. We were unable to obtain formal paperwork because the patient had received sedative medications for his EGD. Plans are underway to assure that there was no family. 03.11.2019: Patient had pain controlled with fentanyl. This is been an ongoing problem which prompted him to come to the ICU. Noted in yesterday's admission note patient has significant arterial disease but did not require any urgent surgical intervention. There are Doppler signals in the foot and the foot is now more hyperemic after being given blood products. Review of systems relevant to events:: 03.12.2019: Patient endorses pain with movement changes. He is asking for pain medications to control this pain. 03.11.2019: Patient's sodium has risen in a correct fashion and his sodium IV fluid has been discontinued. He underwent EGD today which showed a small ulceration in the fundus that was biopsied. There was not active bleeding but may have been the source of chronic bleeding. His hemoglobin hematocrit have remained stable and have risen in expected fashion given 2 units of blood. He has not required any further blood products. We evaluated the proximal bowel to the second portion of the duodenum and did not see any active ulceration or bleeding except possibly at the duodenal bulb. He has had no neurological deficits. He has been sedated from narcotics and from the procedure and the medical power of battery assembler plastic meeting today could not be accomplished secondary to his inability to be fully cognizant. He did meet with his proposed medical power of battery assembler plastic, Obdulia, who is been his landlady and friend for a number of years. She is currently caring for her elderly and would be willing to consider medical power of battery assembler plastic as long as there is no family. Reason for ICU Addmission:: Hyponatremia and Anemia - Medications: Vasopressors:: None Sedation:: Fentanyl prn Physical Exam Vital Signs: Temp Pulse Resp BP Pulse Ox 98.3 F 75 15 135/69 H 91 L 03/12/19 08:00 03/12/19 08:00 03/12/19 08:00 03/12/19 08:00 03/12/19 08:00 Intake & Output 03/11/19 03/12/19 03/13/19 06:59 06:59 06:59 Intake Total 1868 1430 Output Total 980 625 0 Balance 888 805 0 Weight 48.2 kg 45.5 kg Weight/Height Weight 45.5 kg Height 5 ft 5 in General appearance: PRESENT: disheveled, mild distress, thin Exam: Emaciated, chronically ill-appearing 68-year-old male in occasional discomfort with movement and examination. He is awake aware oriented x4 Head exam: PRESENT: atraumatic, normocephalic Eye exam: PRESENT: conjunctiva pink, EOMI, PERRLA. ABSENT: conjunctival injection, nystagmus, scleral icterus Mouth exam: PRESENT: moist, neck supple, tongue midline Teeth exam: PRESENT: edentulous Neck exam: ABSENT: carotid bruit, JVD, lymphadenopathy, thyromegaly Respiratory exam: PRESENT: clear to auscultation ran, unlabored. ABSENT: accessory muscle use, rales, rhonchi, tachypnea, wheezes Cardiovascular exam: PRESENT: RRR. ABSENT: diastolic murmur, rubs, systolic murmur Pulses: PRESENT: other - With the patient laying supine there is pale discoloration of his left foot. Placed in reverse Trendelenburg there is obvious Hector increase in color and capillary refill is improved remarkably. He has lost the dorsalis pedis signal. There is no skin ulceration, cyanosis, or gangrene. He has sensory and motor function still intact. Vascular exam: PRESENT: other - Bilateral femoral artery bruit. ABSENT: normal capillary refill - In left foot GI/Abdominal exam: PRESENT: normal bowel sounds, soft, other - + bruit lower abdomen. ABSENT: ascites, distended, guarding, mass, organolmegaly, rebound, tenderness Rectal exam: PRESENT: deferred, heme (+) stool - In ED Gentrourinary exam: ABSENT: lesions, scrotal swelling, urethral discharge, indwelling catheter Extremities exam: ABSENT: clubbing, pedal edema, +1 edema, +2 edema Musculoskeletal exam: PRESENT: tenderness - Left foot and pain with movement. ABSENT: deformity, dislocation, normal inspection - Has notable muscle atrophy Neurological exam: PRESENT: alert, awake, oriented to person, oriented to place, oriented to time, oriented to situation, CN II-XII grossly intact, motor sensory deficit - Partial paresis left hand and arm--present prior to admission Psychiatric exam: PRESENT: appropriate affect, normal mood Focused psych exam: ABSENT: pressured speech, psychomotor agitation, restlessness Skin exam: PRESENT: intact, pallor - Left foot when in non-dependent position. ABSENT: cyanosis, urticaria, vesicles, warm Tubes/Lines: ABSENT: Endotracheal Tube, Chest Tube, Central Line, Arterial Catheter, Dialysis catheter, Peg Tube, Nasogastic Tube, Other Laboratory/Radiographs Laboratory Results: 03/12/19 00:59 03/11/19 03/11/19 03/11/19 09:54 13:35 18:15 WBC RBC Hgb Hct MCV MCH MCHC RDW Plt Count Seg Neutrophils % Sodium 127.3 L 127.2 L 126.8 L Potassium 3.4 L 3.7 3.5 L Chloride 90 L 89 L 89 L Carbon Dioxide 29 31 H 31 H Anion Gap 8 7 7 BUN 4 L 3 L 4 L Creatinine 0.51 L 0.47 L 0.47 L Est GFR ( Amer) > 60 > 60 > 60 Glucose 78 75 76 Calcium 8.0 L 8.1 L 8.1 L Phosphorus Magnesium 03/11/19 03/11/19 03/12/19 18:15 21:43 00:59 WBC 8.9 8.0 RBC 2.83 L 2.77 L Hgb 8.2 L 8.1 L Hct 24.1 L 23.9 L MCV 85 86 MCH 28.9 29.2 MCHC 33.9 33.8 RDW 21.7 H 21.7 H Plt Count 228 217 Seg Neutrophils % Not Reportable 78.6 H Sodium 127.1 L Potassium 3.5 L Chloride 89 L Carbon Dioxide 29 Anion Gap 9 BUN 5 L Creatinine 0.46 L Est GFR ( Amer) > 60 Glucose 72 L Calcium 8.2 L Phosphorus Magnesium 03/12/19 00:59 WBC RBC Hgb Hct MCV MCH MCHC RDW Plt Count Seg Neutrophils % Sodium Potassium Chloride Carbon Dioxide Anion Gap BUN Creatinine Est GFR ( Amer) Glucose Calcium Phosphorus 4.0 Magnesium 1.8 03/10/19 03/12/19 03/12/19 09:46 00:59 00:59 Creatine Kinase 41 L 32 L Troponin I 0.104 03/12/19 07:14 Creatine Kinase Troponin I 0.079 Impressions: Aorta w/Runoff CTA 03/10/19 00:00 IMPRESSION: 1. Extensive atherosclerosis in the abdominal aorta and lower extremities as described. Of note, there is probably greater than 50% stenosis in the left common femoral artery just prior to the internal and external bifurcation, complete occlusion of the left internal iliac and profunda femoral arteries. Extensive atherosclerotic plaque with stenoses as described in the bilateral lower extremities. Recommend surgical/interventional consultation. 2. Tree-in-bud type nodularity in the right upper lobe suggestive of respiratory bronchiolitis/small airways disease. 3. Rounded atelectasis or possible nodule at the right lung base. A follow-up CT of the chest in 3 months is recommended to re-evaluate these findings. 4. Multiple technically age indeterminate but probably chronic thoracic and lumbar spine compression fractures. Chronic bilateral rib fractures. Chest CT 03/10/19 00:00 IMPRESSION: 1. Extensive atherosclerosis in the abdominal aorta and lower extremities as described. Of note, there is probably greater than 50% stenosis in the left common femoral artery just prior to the internal and external bifurcation, complete occlusion of the left internal iliac and profunda femoral arteries. Extensive atherosclerotic plaque with stenoses as described in the bilateral lower extremities. Recommend surgical/interventional consultation. 2. Tree-in-bud type nodularity in the right upper lobe suggestive of respiratory bronchiolitis/small airways disease. 3. Rounded atelectasis or possible nodule at the right lung base. A follow-up CT of the chest in 3 months is recommended to re-evaluate these findings. 4. Multiple technically age indeterminate but probably chronic thoracic and lumbar spine compression fractures. Chronic bilateral rib fractures. Chest X-Ray 03/10/19 13:06 IMPRESSION: Patchy asymmetric opacities in the right base. Correlate with clinical findings to exclude a pneumonia. All labs, radiographs, diagnostic studies and EKGs were personally reviewed: Yes In addition, reports of radiographic and diagnostic studies were read: Yes Assessment and Plan - Diagnosis (1) Hyponatremia Is this a current diagnosis for this admission?: Yes Plan: improved-appears to be SIADH given high urine sodium (2) Anemia Qualifiers: Anemia type: iron deficiency Iron deficiency anemia type: chronic blood loss Qualified Code(s): D50.0 - Iron deficiency anemia secondary to blood loss (chronic) Is this a current diagnosis for this admission?: Yes (3) Gastric ulcer without hemorrhage or perforation Qualifiers: Gastric ulcer chronicity: chronic Qualified Code(s): K25.7 - Chronic gastric ulcer without hemorrhage or perforation Is this a current diagnosis for this admission?: Yes Plan: No acute bleeding but shows some evidence of chronic bleeding (4) Weight loss, abnormal Is this a current diagnosis for this admission?: Yes (5) Moderate protein-calorie malnutrition Is this a current diagnosis for this admission?: Yes (6) ETOH abuse Is this a current diagnosis for this admission?: Yes (7) EtOH dependence Qualifiers: Substance use status: unspecified alcohol-induced disorder Qualified Code(s): F10.29 - Alcohol dependence with unspecified alcohol-induced disorder Is this a current diagnosis for this admission?: Yes (8) Continuous tobacco abuse Is this a current diagnosis for this admission?: Yes (9) Peripheral vascular complications Is this a current diagnosis for this admission?: Yes (10) SIADH (syndrome of inappropriate ADH production) Is this a current diagnosis for this admission?: Yes (11) T wave inversion in electrocardiogram Is this a current diagnosis for this admission?: Yes (12) Hypertension Qualifiers: Hypertension type: essential hypertension Qualified Code(s): I10 - Essential (primary) hypertension Is this a current diagnosis for this admission?: Yes (13) Failure to thrive syndrome, adult Is this a current diagnosis for this admission?: Yes Plan Summary: 03.12.2019: Patient's condition as far as vascular compromise has worsened. He is more position dependent as far as fractional flow and we have lost the Doppler signal in the left dorsalis pedis. We have placed him in reverse Trendelenburg to achieve blood flow as evidenced by the decrease in capillary response time and improvement in color. Also placed the patient in a modified immobilizer to remind him to keep his leg straight. Any bending of the leg causes compromise in blood flow. As far as chest pain, he is asymptomatic however he has T wave inversions. This may be during pain crises which is indicative of a possible fractional flow re serve phenomena of the heart as well. His sodium level has improved and he is hovering in 127-128. He had an appropriate response and opiate rise over the last 48 hours. His hemoglobin has remained stable above 8. Notably, we do not sense that increasing to a level any higher would improve his overall situation and may cause complications. His blood pressure is improved but is on the high side. We had considered calcium channel chantal to both aid in blood pressure and help leg pain however I am most concerned that this may create a paradoxical steal- like syndrome both intracardiac and peripheral vascularly. I placed a call to [facility] to speak to the vascular surgeon who we had already sp oken with on the patient's admission day. Given the fact that he has intact motor or sensory and no skin changes this does not appear to be an emergent degeneration which would require immediate surgical intervention. I am concerned that the patient has minimal reserve as far as flow with any movement or activity and he is at high risk. He has been transitioned to intermediate care however I do feel with the T wave changes and his very tenuous vascular compromise that he will need to be seen by a vascular team sooner than later. He is having ischemic rest pain in the leg without compromise of the neuro motor system however this is at the cost of keeping him in reverse Trendelenburg and l imiting movement. Have asked to speak to their hospitalist and ordered an attempt to have a multi-modal services evaluate the patient for which we do not have here at [facility]. Patient has been accepted for transfer to [facility]. He has been transitioned to [facility] status here at [facility]. 03.11.2019: Patient's overall clinical status has improved and he is remained hemodynamically stable. His low hemoglobin and hematocrit are reflective of a compensatory chronic condition. His foot pain has been made worse by the introduction of blood which is improved perfusion. 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 I placed his bed in reverse Trendelenburg to continue to support blood flow however if this worsens the pain will need to adjust accordingly. He did have a small area of ulceration in both the stomach and possibly of the duodenal bulb. We are not sure that this explains the degree of his anemia and he will need an a colonoscopy. There is a suggestion that his had a colonoscopy in the past but we are unable to confirm this. We will obtain old records from where we assume he had procedures done ([facility]) Patient's hyponatremia is improved and will discontinue his IV fluids. We will start him on a full liquid diet. Patient has significant alcohol intake that he describes is more than 12 pack of beer per day. Not exhibiting any signs of withdrawal but will be prudent to watch and manage this while in the ICU. Given the possibility of a lesion in his right lung he will need follow-up. Given the urine sodium elevation and hyponatremia of the suggest SIADH and the most common reason would be for malignancy and a long-term smoker. Given his significant vascular disease we have not started nicotine patch. We we will have to discuss tobacco cessation however the use of fentanyl may cloud his memory of discussions. Will await until he is more lucid. Critical Time Critical Time (minutes): 60 Level of Care: [facility] Anticipated discharge: [facility] Within: within 24 hours -: 1. The care of a critical patient is a dynamic process. This note is a customer engagement representative synopsis but static in nature. The timeframe for treatments given in order is not necessarily the actual time these treatments may have been done. 2. This patient requires critical care secondary to ongoing requirements for therapy not offered or safe outside the critical care environment. Transfer to a lower level of care will result in altered life or limb morbidity and mortality. 3. Multidisciplinary rounds completed. 4. ABCDE bundle addressed.
[2019-03-12] MEDS ORDERED: HYDROMORPHONE HCL INJ/PF 2 MG/ML AMPULE ONE (10:21)
[2019-03-12] MEDS ORDERED: THIAMINE HCL 250 MG in NORMAL SALINE 250 ML IV SCH (11:00)
[2019-03-12] MEDS ORDERED: THIAMINE HCL 250 MG in NORMAL SALINE 50 ML IV SCH (11:00)
[2019-03-12 12:06] VITALS: BP 146/92
--- NOTE | 2019-03-12 17:36 | EKG REPORT ---
SEVERITY:- ABNORMAL ECG - SINUS RHYTHM MULTIPLE VENTRICULAR PREMATURE COMPLEXES ABNORMAL T, PROBABLE ISCHEMIA, ANT-LAT LEADS BORDERLINE PROLONGED QT INTERVAL : Confirmed by: Rosendo Chawla 12-Mar-2019 17:35:15
--- NOTE | 2019-03-12 17:36 | EKG REPORT ---
SEVERITY:- ABNORMAL ECG - SINUS RHYTHM BORDERLINE R WAVE PROGRESSION, ANTERIOR LEADS ABNORMAL T, PROBABLE ISCHEMIA, ANT-LAT LEADS BORDERLINE PROLONGED QT INTERVAL : Confirmed by: Rosendo Chawla 12-Mar-2019 17:35:01
== END 2019-03-12 12:58 | disposition short-term general hospital (02) | DRG 643 ==
LOC: ER 09:00 → EH 13:23 → ICU 20:10
PROVIDERS: ADMIT Internal Medicine Critical Care Medicine; ATTEND Internal Medicine Critical Care Medicine
PROC: 30233N1 Transfusion of Nonautologous Red Blood Cells into Peripheral Vein, Percutaneous Approach (ICD-10-PCS; 2019-03-10)
PROC: 0DB68ZX Excision of Stomach, Via Natural or Artificial Opening Endoscopic, Diagnostic (ICD-10-PCS; principal; 2019-03-11 14:00)
DX: E22.2 Syndrome of inappropriate secretion of antidiuretic hormone (principal); E41 Nutritional marasmus; E44.0 Moderate protein-calorie malnutrition; Z68.1 Body mass index [BMI] 19.9 or less, adult; K25.7 Chronic gastric ulcer without hemorrhage or perforation; F10.20 Alcohol dependence, uncomplicated; Y90.0 Blood alcohol level of less than 20 mg/100 ml; R63.4 Abnormal weight loss; I73.9 Peripheral vascular disease, unspecified; I10 Essential (primary) hypertension; R62.7 Adult failure to thrive; K29.70 Gastritis, unspecified, without bleeding; D50.0 Iron deficiency anemia secondary to blood loss (chronic); E78.5 Hyperlipidemia, unspecified; Z60.2 Problems related to living alone; K21.9 Gastro-esophageal reflux disease without esophagitis; K44.9 Diaphragmatic hernia without obstruction or gangrene; F17.210 Nicotine dependence, cigarettes, uncomplicated; E78.00 Pure hypercholesterolemia, unspecified; Z79.899 Other long term (current) drug therapy; Z86.73 Personal history of transient ischemic attack (TIA), and cerebral infarction without residual deficits
CPT/HCPCS: 36415; 36430; 43239; 71045; 71260; 75635; 80048; 80053; 80307; 81001; 82140; 82378; 82550; 82553; 82803; 82962; 83735; 83930; 83935; 84100; 84153; 84300; 84443; 84484; 85025; 85610; 85730; 86140; 86850; 86900; 86901; 86920; 87040; 87150; 88305; 93005; 93010; 93925; 96374; 99239; 99285; 99291; 99292; C9113; J0171; J1170; J1200; J1610; J2250; J2270; J2310; J2405; J3010; J3411; J3475; J3480; J3490; J7030; J7050; P9016